=== PATIENT | male | born 1955 | race Caucasian/White ===

== ENCOUNTER 2021-05-30 01:11 | Outpatient (CLI) | payer MEDICARE, MEDICAID | END 2021-05-30 01:12 | disposition critical access hospital (66) | LOC: EMS 01:11 | DX: E11.65 Type 2 diabetes mellitus with hyperglycemia (principal); R41.82 Altered mental status, unspecified | CPT/HCPCS: A0425; A0429 ==

== ENCOUNTER 2021-05-30 01:13 | Inpatient (IN) | payer MEDICARE, MEDICAID ==
[2021-05-30] MEDS ORDERED: SODIUM CHLORIDE 0.9% 500 ML IV STA (01:19)
[2021-05-30] MEDS ORDERED: ACETAMINOPHEN 325 MG TABLET PO STA (01:24)
--- NOTE | 2021-05-30 01:24 | ED Physician Documentation ---
History of Present Illness - Stated complaint Stated Complaint: AMS, FOUND DOWN - History obtained from History obtained from: EMS - Additonal information Additional information: 66yM with pmh dm, htn, hld, p/w agitated behavior and apparent confusion. LSN 1pm. came home at midnight tonight and found him on the ground, covered in urine, apparently confused. patient stated to ems that he had laid himself down on the ground. Agitated en route requiring nonviolent soft restraints. GCS 13 for ems (eye opening spontaneously, confused verbal response, localizing pain but not obeying commands). Patient unable to state his name, location, or the year for me. He repeatedly states he has to get out of bed and does not have any pain anywhere. also repeatedly saying he has to urinate but unable to do so. further history limited by patient AMS. Per EMS he has been on amoxicillin X 3 weeks for bad dental infection. patient is supposed to have a root canal this monday with Dr. Jef Youssef. Review of Systems Unable to obtain: AMS PD PAST MEDICAL HISTORY - Present Medications Home Medications: Ambulatory Orders Medication Instructions Recorded Confirmed Aspirin [Aspirin EC] 1 tab DAILY 05/30/21 05/30/21 Atorvastatin Calcium 40 mg PO DAILY 05/30/21 05/30/21 Cetirizine [ZyrTEC] 1 tab DAILY 05/30/21 05/30/21 Chlorthalidone 1 tab DAILY 05/30/21 05/30/21 Clopidogrel [Plavix] 75 mg PO DAILY 05/30/21 05/30/21 Docusate Sodium [Dulcolax Stool 100 mg PO BID 05/30/21 05/30/21 Softener] Dulaglutide [Trulicity] 3 mg SQ ONCE 05/30/21 05/30/21 Empagliflozin [Jardiance] 25 mg PO DAILY 05/30/21 05/30/21 Furosemide [Lasix] 40 mg PO DAILY 05/30/21 05/30/21 Insulin Glargine [Lantus Solostar] 58 units 2100 05/30/21 05/30/21 Isosorbide Mononitrate ER [Imdur] 60 mg PO DAILY 05/30/21 05/30/21 Losartan [Cozaar] 100 mg PO DAILY 05/30/21 05/30/21 Metoprolol Succinate 100 mg PO DAILY 05/30/21 05/30/21 Morphine ER [Morphine Sulfate ER] 60 mg PO Q12H 05/30/21 05/30/21 Oxycodone HCl/Acetaminophen 1.5 tab PO Q6H 05/30/21 05/30/21 [Percocet 10-325 mg Tablet] Oxycodone HCl/Acetaminophen 1 each PO Q6H 05/30/21 05/30/21 [Percocet 7.5-325 mg Tablet] Tamsulosin HCl [Flomax] 2 cap DAILY 05/30/21 05/30/21 amLODIPine [Norvasc] 10 mg PO DAILY 05/30/21 05/30/21 glipiZIDE [Glucotrol] 5 mg PO 0730 05/30/21 05/30/21 metFORMIN [Glucophage] 1,000 mg PO BIDWM 05/30/21 05/30/21 traZODone [Desyrel] 50 mg PO ONCE 05/30/21 05/30/21 - Allergies Allergies/Adverse Reactions: Allergies Allergy/AdvReac Type Severity Reaction Status Date / Time No Known Drug Allergies Allergy Verified 05/30/21 01:20 PD ED PE NORMAL - Vitals Vital signs reviewed: Yes - General General: Other (Alert, confused, mildly agitated, attempting to get out of bed and pull at IV) - HEENT HEENT: Atraumatic, PERRL, EOMI, Moist mucous membranes, Pharynx benign, Other (L lower back molar with swelling and discomfort to palpation. protecting airway. no stridor. no submental hardening or ttp. able to open and close jaw) - Neck Neck: Supple, no meningeal sign - Cardiac Cardiac: Other (tachycardic rate, regular rhythm) - Respiratory Respiratory: No respiratory distress, Clear bilaterally - Abdomen Abdomen: Non tender, Non distended - Male Male : Other (normal ext male genitalia) - Derm Derm: Normal color, Warm and dry - Extremities Extremities: No deformity - Neuro Neuro: Other (AOX0) Eye Opening: Spontaneous Motor: Obeys Commands (obeys some commands. intermittently compliant. unable to assess mental status since patient refuses or is unable to answer mental status questions. appears to recognize ) Verbal: Confused GCS Score: 14 - Psych Psych: Other (AMS) Results - Vitals Vitals: Vital Signs - 24 hr 05/30/21 05/30/21 05/30/21 01:20 01:53 02:23 Temperature 38.1 C H Heart Rate 124 H 119 H 118 H Respiratory 25 H 26 H 94 H Rate Blood Pressure 103/81 H 131/71 H 131/71 H O2 Saturation 99 94 2 L 05/30/21 05/30/21 05/30/21 02:30 03:00 04:26 Temperature Heart Rate 117 H 123 H 99 Respiratory 22 18 20 Rate Blood Pressure 136/64 H 129/75 106/54 L O2 Saturation 93 92 93 05/30/21 04:30 Temperature Heart Rate 98 Respiratory 21 Rate Blood Pressure 110/49 L O2 Saturation 96 Oxygen O2 Source Nasal cannula Oxygen Flow Rate 2 - EKG (time done) 0122 Rate: Rate (enter#) Rhythm: Sinus tachycardia [place]: RAD QRS: Normal (97) Ischemia: Other (no significant JESUS or STD) Computer interpretation: Disagree with computer (computer interpretation is a flutter (due to artifact. patient moving/agitated during ekg). precordials show clear NSR) - Labs Labs: Laboratory Tests 05/30/21 05/30/21 05/30/21 01:22 01:27 01:27 WBC 30.2 H RBC 4.53 L Hgb 13.6 L Hct 41.9 L MCV 92.5 MCH 30.0 MCHC 32.5 RDW 13.8 Plt Count 394 MPV 9.6 Neut # (Auto) Not Reportable Lymph # (Auto) Not Reportable [place] # (Auto) Not Reportable Eos # (Auto) Not Reportable Baso # (Auto) Not Reportable Absolute Nucleated RBC Not Reportable Total Counted 100 Band Neuts % (Manual) 0 Abnorm Lymph % (Manual) 0 Nucleated RBC % Not Reportable Neutrophils # (Manual) 27.2 H Lymphocytes # (Manual) 1.2 L Monocytes # (Manual) 1.8 H Eosinophils # (Manual) 0.0 Basophils # (Manual) 0.0 Differential Comment MANUAL DIFFERENTIAL WBC Morphology NORMAL APPEARANCE Platelet Estimate NORMAL (130-450,000) Platelet Morphology NORMAL APPEARANCE RBC Morph Micro Appear NORMAL APPEARANCE VBG pH VBG pCO2 VBG pO2 VBG HCO3 VBG Total CO2 VBG O2 Saturation VBG Base Excess Sodium 132 L Potassium 4.5 Chloride 88 L Carbon Dioxide 29 Anion Gap 15.0 H BUN 46 H Creatinine 1.4 H Estimated GFR (MDRD) 51 L Glucose 447 H POC Whole Bld Glucose 455 H Lactic Acid Calcium 8.9 Total Bilirubin 0.5 AST 32 ALT 39 Alkaline Phosphatase 82 Total Protein 8.2 Albumin 3.1 L Globulin 5.1 H Albumin/Globulin Ratio 0.6 L Lipase 30 Urine Color Urine Clarity Urine pH Ur Specific [place] Urine Protein Urine Glucose (UA) Urine Ketones Urine Occult Blood Urine Nitrite Urine Bilirubin Urine Urobilinogen Ur Leukocyte Esterase Ur Microscopic Review Urine Culture Comments Nasal Adenovirus (PCR) Nasal B. parapertussis DNA (PCR) Nasal Coronavir 229E PCR Nasal Coronavir HKU1 PCR Nasal Coronavir NL63 PCR Nasal Coronavir OC43 PCR Nasal Enterovir/Rhinovir PCR Nasal Influenza B PCR Nasal Influenza A PCR Nasal Parainfluen 1 PCR Nasal Parainfluen 2 PCR Nasal Parainfluen 3 PCR Nasal Parainfluen 4 PCR Nasal RSV (PCR) Nasal B.pertussis DNA PCR Nasal C.pneumoniae (PCR) Pablo Human Metapneumo PCR Nasal M.pneumoniae (PCR) Nasal SARS-CoV-2 (PCR) Serum Ketones NEGATIVE 05/30/21 05/30/21 05/30/21 01:27 01:49 01:54 WBC RBC Hgb Hct MCV MCH MCHC RDW Plt Count MPV Neut # (Auto) Lymph # (Auto) [place] # (Auto) Eos # (Auto) Baso # (Auto) Absolute Nucleated RBC Total Counted Band Neuts % (Manual) Abnorm Lymph % (Manual) Nucleated RBC % Neutrophils # (Manual) Lymphocytes # (Manual) Monocytes # (Manual) Eosinophils # (Manual) Basophils # (Manual) Differential Comment WBC Morphology Platelet Estimate Platelet Morphology RBC Morph Micro Appear VBG pH 7.308 L VBG pCO2 66.0 H VBG pO2 26.3 VBG HCO3 32.3 H VBG Total CO2 34.4 H VBG O2 Saturation 48.0 L VBG Base Excess 4.0 H Sodium Potassium Chloride Carbon Dioxide Anion Gap BUN Creatinine Estimated GFR (MDRD) Glucose POC Whole Bld Glucose Lactic Acid 5.0 H* Calcium Total Bilirubin AST ALT Alkaline Phosphatase Total Protein Albumin Globulin Albumin/Globulin Ratio Lipase Urine Color YELLOW Urine Clarity CLEAR Urine pH 5.5 Ur Specific [place] <=1.005 Urine Protein NEGATIVE Urine Glucose (UA) >=1000 H Urine Ketones NEGATIVE Urine Occult Blood NEGATIVE Urine Nitrite NEGATIVE Urine Bilirubin NEGATIVE Urine Urobilinogen 0.2 (NORMAL) Ur Leukocyte Esterase NEGATIVE Ur Microscopic Review NOT INDICATED Urine Culture Comments NOT INDICATED Nasal Adenovirus (PCR) Nasal B. parapertussis DNA (PCR) Nasal Coronavir 229E PCR Nasal Coronavir HKU1 PCR Nasal Coronavir NL63 PCR Nasal Coronavir OC43 PCR Nasal Enterovir/Rhinovir PCR Nasal Influenza B PCR Nasal Influenza A PCR Nasal Parainfluen 1 PCR Nasal Parainfluen 2 PCR Nasal Parainfluen 3 PCR Nasal Parainfluen 4 PCR Nasal RSV (PCR) Nasal B.pertussis DNA PCR Nasal C.pneumoniae (PCR) Pablo Human Metapneumo PCR Nasal M.pneumoniae (PCR) Nasal SARS-CoV-2 (PCR) Serum Ketones 05/30/21 05/30/21 05/30/21 01:56 03:06 03:56 WBC RBC Hgb Hct MCV MCH MCHC RDW Plt Count MPV Neut # (Auto) Lymph # (Auto) [place] # (Auto) Eos # (Auto) Baso # (Auto) Absolute Nucleated RBC Total Counted Band Neuts % (Manual) Abnorm Lymph % (Manual) Nucleated RBC % Neutrophils # (Manual) Lymphocytes # (Manual) Monocytes # (Manual) Eosinophils # (Manual) Basophils # (Manual) Differential Comment WBC Morphology Platelet Estimate Platelet Morphology RBC Morph Micro Appear VBG pH VBG pCO2 VBG pO2 VBG HCO3 VBG Total CO2 VBG O2 Saturation VBG Base Excess Sodium Potassium Chloride Carbon Dioxide Anion Gap BUN Creatinine Estimated GFR (MDRD) Glucose POC Whole Bld Glucose 385 H Lactic Acid 3.5 H* Calcium Total Bilirubin AST ALT Alkaline Phosphatase Total Protein Albumin Globulin Albumin/Globulin Ratio Lipase Urine Color Urine Clarity Urine pH Ur Specific [place] Urine Protein Urine Glucose (UA) Urine Ketones Urine Occult Blood Urine Nitrite Urine Bilirubin Urine Urobilinogen Ur Leukocyte Esterase Ur Microscopic Review Urine Culture Comments Nasal Adenovirus (PCR) NOT DETECTED Nasal B. parapertussis DNA (PCR) NOT DETECTED Nasal Coronavir 229E PCR NOT DETECTED Nasal Coronavir HKU1 PCR NOT DETECTED Nasal Coronavir NL63 PCR NOT DETECTED Nasal Coronavir OC43 PCR NOT DETECTED Nasal Enterovir/Rhinovir PCR NOT DETECTED Nasal Influenza B PCR NOT DETECTED Nasal Influenza A PCR NOT DETECTED Nasal Parainfluen 1 PCR NOT DETECTED Nasal Parainfluen 2 PCR NOT DETECTED Nasal Parainfluen 3 PCR NOT DETECTED Nasal Parainfluen 4 PCR NOT DETECTED Nasal RSV (PCR) NOT DETECTED Nasal B.pertussis DNA PCR NOT DETECTED Nasal C.pneumoniae (PCR) NOT DETECTED Pablo Human Metapneumo PCR NOT DETECTED Nasal M.pneumoniae (PCR) NOT DETECTED Nasal SARS-CoV-2 (PCR) NOT DETECTED Serum Ketones PD MEDICAL DECISION MAKING - ED course ED course: 66yM p/w fever, confusion, elevated blood glucose, urinary frequency and incontinence. also with L lower dental infection, currently in treatment with augmentin. collateral info from - patient has not been coughing, soa, complaining of n/v, abd pain or diarrhea. he has never had kidney stones or uti to her knowledge. he appeared normal when she went to work around 1 pm and is now confused without clear explanation as to why. Will undertake septic workup to evaluate further. u/a negative. CXR without clear pneumonia. abdomen soft, ntnd. mildly hypoxic, 94% on 2L NC. no prior copd history, though he has untreated IESHA. patient is not vaccinated against covid 19 but has no known sick contacts. works front loader residential driver at [employer] but is unaware of any exposures. will plan to treat for possible odontogenic infection vs covid-19, obtain CT head/max facial and admit. 4:30am - lactic acid downtrending. AMS resolved. patient now AOX3. tachycardia and tachypnea also resolving. call placed to Dr. Poncho Youssef regarding facial swelling. message left without patient identifiers, requesting callback for consult. Patient is supposed to get root canal with Dr. Poncho Youssef' father Dr. Jef Youssef on monday. patient is without trismus. speaking in normal voice. no submental swelling or pain. does have mild swelling along L jawline as well as L lower periodontal swelling that appears to be his source of infection. CT head and maxillofacial negative for abscess. d/w Dr. Zarate for admission for IV antibiotics for sepsis in the setting of chronic dental infection. Departure - Departure Disposition: 66 [facility] DC/Xfer Clinical Impression: Sepsis, Leukocytosis, Chronic dental infection Condition: Stable
[2021-05-30] MEDS ORDERED: CLINDAMYCIN 900 MG/50 ML 50 ML IV ONE (01:30)
[2021-05-30 01:37] LABS: BASOPHILS % (AUTO) 0.5 %; EOSINOPHILS % (AUTO) 0.1 %; HCT - HEMATOCRIT 41.9 % (42.0-52.0); HGB - HEMOGLOBIN 13.6 g/dL (14.0-18.0); LYMPHOCYTES % (AUTO) 4.3 %; MEAN CORPUSCULAR HGB CONC 32.5 g/dL (32.0-36.0); MEAN CORPUSCULAR VOLUME 92.5 fL (80.0-94.0); MEAN PLATELET VOLUME 9.6 fL (7.4-11.4); MONOCYTES % (AUTO) 6.1 %; PLT - PLATELET COUNT 394 10^3/uL (130-450); RED BLOOD COUNT 4.53 10^6/uL (4.70-6.10); RED CELL DISTRIBUTION WIDTH 13.8 % (12.0-15.0); WHITE BLOOD COUNT 30.2 x10^3/uL (4.8-10.8)
[2021-05-30 01:39] LABS: ABNORMAL LYMPHS % (MANUAL) 0 %; BAND NEUTROPHILS % (MANUAL) 0 %
[2021-05-30 01:41] LABS: KETONES, SERUM (ACETEST) NEGATIVE (NEGATIVE)
[2021-05-30 01:49] LABS: ALBUMIN 3.1 g/dL (3.2-5.5); ALBUMIN/GLOBULIN RATIO 0.6 (1.0-2.2); ALKALINE PHOSPHATASE 82 IU/L (42-121); ALT ALANINE AMINOTRANSFERASE 39 IU/L (10-60); AST ASPARTATE AMINOTRANSFERASE 32 IU/L (10-42); BILIRUBIN,TOTAL 0.5 mg/dL (0.2-1.0); BUN - BLOOD UREA NITROGEN 46 mg/dL (6-20); CALCIUM 8.9 mg/dL (8.5-10.3); CARBON DIOXIDE - CO2 29 mmol/L (21-32); CHLORIDE 88 mmol/L (101-111); CREATININE 1.4 mg/dL (0.6-1.2); GFR - MDRD 51 (>89); GLUCOSE 447 mg/dL (70-100); LIPASE 30 U/L (22-51); POTASSIUM 4.5 mmol/L (3.5-5.0); SODIUM 132 mmol/L (135-145); TOTAL PROTEIN 8.2 g/dL (6.7-8.2)
[2021-05-30] MEDS ORDERED: SODIUM CHLORIDE 0.9% 1,500 ML IV STA (01:52)
[2021-05-30 01:57] LABS: BILIRUBIN,URINE NEGATIVE (NEGATIVE); GLUCOSE, URINE (UA) >=1000 mg/dL (NEGATIVE); KETONES,URINE (UA) NEGATIVE (NEGATIVE); LEUKOCYTE ESTERASE, URINE NEGATIVE (NEGATIVE); NITRITE,URINE NEGATIVE (NEGATIVE); OCCULT BLOOD,URINE NEGATIVE (NEGATIVE); PH,URINE 5.5 PH (5.0-7.5); PROTEIN,URINE NEGATIVE (NEGATIVE); UROBILINOGEN,URINE 0.2 (NORMAL) E.U./dL (NORMAL)
[2021-05-30 01:58] LABS: DIFFERENTIAL COMMENT MANUAL DIFFERENTIAL; LYMPHOCYTES # (MANUAL) 1.2 10^3/uL (1.5-3.5); LYMPHOCYTES % (MANUAL) 4 %; MONOCYTES # (MANUAL) 1.8 10^3/uL (0.0-1.0); NEUTROPHILS # (MANUAL) 27.2 10^3/uL (1.5-6.6); PLATELET ESTIMATE, MANUAL NORMAL (130-450,000) (NORMAL); PLATELET MORPHOLOGY NORMAL APPEARANCE (NORMAL); RBC MORPHOLOGY (MULTIPLE) NORMAL APPEARANCE (NORMAL); WBC MORPHOLOGY (MULTIPLE) NORMAL APPEARANCE (NORMAL)
[2021-05-30 01:59] LABS: CLARITY,URINE CLEAR (CLEAR)
[2021-05-30 02:01] LABS: VBG HCO3 32.3 mmol/L (23-28); VBG PH 7.308 (7.31-7.41); VBG PO2 26.3 mmHg (25-47); VBG TOTAL CO2 34.4 mmol/L (24-29)
[2021-05-30] MEDS ORDERED: PIPERACILLIN/TAZOBACTAM 3.375 GM in SODIUM CHLORIDE 0.9% MINIBAG 100 ML IV STA (02:09)
--- NOTE | 2021-05-30 02:12 | XRAY Report ---
PROCEDURE: Chest 1 View X-Ray INDICATIONS: sepsis screening TECHNIQUE: One view of the chest was acquired. COMPARISON: None. FINDINGS: Surgical changes and devices: None. Lungs and pleura: Bilateral infiltrates. No pleural effusions or pneumothorax. Mediastinum: Mediastinal contours appear normal. Heart size is normal. Bones and chest wall: No suspicious bony lesions. Overlying soft tissues appear unremarkable. IMPRESSION: Lateral pulmonary infiltrates compatible with pneumonia. Reviewed by: Isauro Colorado MD on 05/30/2021 2:11 AM PST Approved by: Isauro Colorado MD on 05/30/2021 2:11 AM [facility] Station ID: [id number]
[2021-05-30] MEDS ORDERED: IOPAMIDOL-300 100 ML VIAL ONE (02:40)
[2021-05-30 02:55] LABS: B. PARAPERTUSSIS- RESP PCR PAN NOT DETECTED; B. PERTUSSIS- RESP PCR PANEL NOT DETECTED; C. PNEUMONIAE- RESP PCR PANEL NOT DETECTED; CORONAVIRUS 229E-RESP PCR NOT DETECTED; CORONAVIRUS HKU1-RESP PCR NOT DETECTED; CORONAVIRUS NL63-RESP PCR NOT DETECTED; CORONAVIRUS OC43-RESP PCR NOT DETECTED; HUMAN METAPNEUMOVIRUS NOT DETECTED; INFLUENZA A- RESP PCR PANEL NOT DETECTED; INFLUENZA B - RESP PCR PANEL NOT DETECTED; M. PNEUMONIAE- RESP PCR PANEL NOT DETECTED; PARAINFLUENZA VIRUS 1 NOT DETECTED; PARAINFLUENZA VIRUS 2 NOT DETECTED; PARAINFLUENZA VIRUS 3 NOT DETECTED; PARAINFLUENZA VIRUS 4 NOT DETECTED; RHINOVIRUS/ENTEROVIRUS NOT DETECTED; RSV- RESP PCR PANEL NOT DETECTED; SARS-CoV-2 -RESP PCR PANEL NOT DETECTED
[2021-05-30] MEDS ORDERED: MORPHINE 2 MG/ML CARPUJECT IVP STA (02:56)
[2021-05-30] MEDS ORDERED: INSULIN REGULAR HUMAN 100 UNIT/1 ML 10 ML MDV IVP STA (03:01)
[2021-05-30] MEDS ORDERED: IOPAMIDOL-300 100 ML VIAL IVP ONE (03:43)
[2021-05-30] MEDS ORDERED: ACETAMINOPHEN 325 MG TABLET PO PRN (05:14)
[2021-05-30] MEDS ORDERED: ONDANSETRON ODT 4 MG TABLET TL PRN (05:14)
[2021-05-30] MEDS ORDERED: ONDANSETRON 4 MG/2 ML VIAL IVP PRN (05:14)
[2021-05-30] MEDS ORDERED: SODIUM CHLORIDE FLUSH 0.9% 10 ML SYRINGE IVP PRN (05:14)
[2021-05-30] MEDS: LACTATED RINGERS 1,000 ML IV SCH ×2 (06:08→16:37)
[2021-05-30 06:17] LABS: BASOPHILS % (AUTO) 0.4 %; EOSINOPHILS % (AUTO) 0.2 %; HGB - HEMOGLOBIN 12.3 g/dL (14.0-18.0); LYMPHOCYTES % (AUTO) 3.3 %; MEAN CORPUSCULAR HEMOGLOBIN 30.6 pg (27.0-31.0); MEAN CORPUSCULAR HGB CONC 33.2 g/dL (32.0-36.0); MEAN PLATELET VOLUME 9.7 fL (7.4-11.4); MONOCYTES % (AUTO) 5.5 %; NEUTROPHILS % (AUTO) 87.6 %; PLT - PLATELET COUNT 361 10^3/uL (130-450); RED BLOOD COUNT 4.02 10^6/uL (4.70-6.10); RED CELL DISTRIBUTION WIDTH 13.9 % (12.0-15.0)
[2021-05-30] MEDS ORDERED: LACTATED RINGERS 1,000 ML IV ONE (06:17)
--- NOTE | 2021-05-30 06:18 | HISTORY & PHYSICAL EXAMINATION ---
Chief Complaint - Chief Complaint Chief Complaint: My found me passed out. History of Present Illness - Admitted From Admitted From:: Home - History Obtained From Records Reviewed: Yes History obtained from: Patient, ER Physician, EMR - History of Present Illness HPI Comment/Other: This is a 66-year-old male with a past medical history significant for insulin- dependent diabetes mellitus, IESHA on CPAP, hypertension, coronary artery disease who presents today after being found down by his . His works at [employer] and she was working this evening and when she came home at midnight, she found him passed out on the bathroom and EMS was called immediately. The patient was initially quite altered but his mentation has improved since his time in the emergency department. He tells me he had been feeling fine except for fatigue over the past 2 weeks. He has felt tired and has not been eating very much over this period of time. He is also been sleeping in his recliner due to leg swelling and pain when he lies flat. He denies any chest pain, dyspnea, cough, fevers, chills. He reports no abdominal pain, diarrhea, nausea, vomiting, dysuria, urgency. He reports feeling completely fine except for the fatigue. He has been battling a left molar tooth infection over the past couple weeks. He just completed a course of Augmentin 2 days ago and is scheduled for a root canal this week with Dr. Jef Youssef. Here in the emergency department, he was noted to be febrile and tachycardic. He was initially normotensive. Labs revealed a white count of 30,000 and a lactic acid of 5.0. His creatinine was also elevated at 1.4. CT of the head and oral maxillofacial were unremarkable. His urinalysis was unremarkable. Ch est x-ray suggested bilateral pneumonia. Respiratory PCR panel was negative. Given the above findings, medicine was consulted for admission. I did discuss goals of care with the patient and he would like to be a full code. History - Past Medical History Cardiovascular: reports: Hypertension, Coronary artery disease Endocrine/Autoimmune: reports: Type 2 diabetes : reports: Benign prostate hypertrophy HEENT: reports: Chronic hearing loss Musculoskeletal: reports: Osteoarthritis - Past Surgical History Ortho: reports: Hip replacement (Right hip replacement in 209.) Cardiovascular: reports: Cardiac catheterization, Angioplasty - Family & Social History Family History: Mother: , Father: Family History Comment/Other: He reports his mother at 92 from natural causes. His father from coronary artery disease. Living arrangement: At home Living Situation: With spouse/s.o. Social History Notes: He lives at home with his . 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 He does not smoke and does not drink alcohol. Meds/Allgy - Home Medications Home Medications: Ambulatory Orders Medication Instructions Recorded Confirmed Aspirin [Aspirin EC] 1 tab DAILY 05/30/21 05/30/21 Atorvastatin Calcium 40 mg PO DAILY 05/30/21 05/30/21 Cetirizine [ZyrTEC] 1 tab DAILY 05/30/21 05/30/21 Chlorthalidone 1 tab DAILY 05/30/21 05/30/21 Clopidogrel [Plavix] 75 mg PO DAILY 05/30/21 05/30/21 Docusate Sodium [Dulcolax Stool 100 mg PO BID 05/30/21 05/30/21 Softener] Dulaglutide [Trulicity] 3 mg SQ ONCE 05/30/21 05/30/21 Empagliflozin [Jardiance] 25 mg PO DAILY 05/30/21 05/30/21 Furosemide [Lasix] 40 mg PO DAILY 05/30/21 05/30/21 Insulin Glargine [Lantus Solostar] 58 units 2100 05/30/21 05/30/21 Isosorbide Mononitrate ER [Imdur] 60 mg PO DAILY 05/30/21 05/30/21 Losartan [Cozaar] 100 mg PO DAILY 05/30/21 05/30/21 Metoprolol Succinate 100 mg PO DAILY 05/30/21 05/30/21 Morphine ER [Morphine Sulfate ER] 60 mg PO Q12H 05/30/21 05/30/21 Oxycodone HCl/Acetaminophen 1.5 tab PO Q6H 05/30/21 05/30/21 [Percocet 10-325 mg Tablet] Oxycodone HCl/Acetaminophen 1 each PO Q6H 05/30/21 05/30/21 [Percocet 7.5-325 mg Tablet] Tamsulosin HCl [Flomax] 2 cap DAILY 05/30/21 05/30/21 amLODIPine [Norvasc] 10 mg PO DAILY 05/30/21 05/30/21 glipiZIDE [Glucotrol] 5 mg PO 0730 05/30/21 05/30/21 metFORMIN [Glucophage] 1,000 mg PO BIDWM 05/30/21 05/30/21 traZODone [Desyrel] 50 mg PO ONCE 05/30/21 05/30/21 - Allergies Allergies/Adverse Reactions: Allergies Allergy/AdvReac Type Severity Reaction Status Date / Time No Known Drug Allergies Allergy Verified 05/30/21 01:20 Review of Systems - Constitutional Constitutional: reports: Fatigue, Poor appetite. denies: Fever, Chills - Ears, Nose & Throat Ears, Nose & Throat: reports: Dental pain. denies: Nasal discharge, Nasal congestion, Sore throat - Cardiovascular Cariovascular: reports: Edema. denies: Chest pain, Lightheadedness, Exertional dyspnea, Decr. exercise tolerance - Respiratory Respiratory: denies: Cough, Orthopnea, SOB at rest, SOB with exertion - Gastrointestinal Gastrointestinal: denies: Abdominal pain, Diarrhea, Nausea, Vomiting - Genitourinary Genitourinary: denies: Dysuria, Frequency, Urgency, Hematuria - Musculoskeletal Musculoskeletal: reports: Back pain (Chronic.) - Integumentary Integumentary: denies: Rash - Neurological Neurological: reports: General weakness. denies: Focal weakness, Dizziness - Hematologic/Lymphatic Hematologic/Lymphatic: denies: Bleeding tendencies - All Other Systems All Other Systems: reports: Reviewed and negative Prior Level of Functionality: He is normally independent with his ADLs. He meets with a walker or cane at baseline. Exam - Vital Signs Reviewed Vital Signs: Yes Vital Signs: Vital Signs x48h Temp Pulse Resp BP Pulse Ox 05/30/21 05:00 109 H 19 100/85 H 96 05/30/21 04:30 98 21 110/49 L 96 05/30/21 04:26 99 20 106/54 L 93 05/30/21 03:00 123 H 18 129/75 92 05/30/21 02:30 117 H 22 136/64 H 93 05/30/21 02:23 118 H 94 H 131/71 H 2 L 05/30/21 01:53 119 H 26 H 131/71 H 94 05/30/21 01:20 38.1 C H 124 H 25 H 103/81 H 99 - Physical Exam General Appearance: positive: No acute distress, Alert Eyes Bilateral: positive: Normal inspection, Conjunctivae nml ENT: positive: ENT inspection nml, Other (Left lower molar cavity without erythema. Mild tenderness.). negative: Pharyngeal erythema Neck: positive: Nml inspection Respiratory: positive: No respiratory distress, Rhonchi. negative: Wheezes, Rales Cardiovascular: positive: Regular rate & rhythm, No murmur. negative: Tachycardia Abdomen: positive: Non-tender, No distention. negative: Tenderness, Guarding, Rebound Back: positive: Nml inspection, Other (Mild lumbar spine tenderness. No paraspinal tenderness.) Skin: positive: Warm, Dry Extremities: positive: Pedal edema (+2 pitting edema bilateral lower extremities) Neurologic/Psychiatric: positive: Motor nml. negative: Disoriented to person, Disoriented to place, Disoriented to time Sepsis Event Note (H) - Evaluation Current Stage of Sepsis: Severe sepsis Possible source of Sepsis: positive: Pulmonary, Unknown - Sepsis Criteria Sepsis Criteria: Recorded Temperature greater than 38.3C or Less than 36C, Recorded Heart Rate greater than 90 bpm, WBC count greater than 12,000 or less than 4000, MEDICAL CLERICAL ASSISTANT: altered consciousness (unrelated to primary neuro pathology), Metabolic: lactate > 2 mmol/L Conclusion/Plan - Problem List (1) Severe sepsis Conclusion/Plan: This is suspected to be secondary to the pneumonia or potentially a dental infection. He presents with a fever, leukocytosis, lactic acidosis. He was also encephalopathic initially which has since resolved. Urinalysis is unremarkable. His abdominal exam is also unremarkable so low suspicion for an abdominal source. We will continue him empirically on vancomycin, Zosyn, and azithromycin which will cover for pneumonia as well as any potential dental infection or an infection that has not manifested itself yet. Blood cultures h ave been ordered and are pending. Trend CBC. Trend lactic acid. We will give another liter of lactated Ringer's and start him on maintenance IV fluids. (2) Community acquired pneumonia Conclusion/Plan: His chest x-ray reveals bilateral infiltrates. He is on 2 L of oxygen but denies dyspnea or cough. Respiratory PCR panel is negative. Given the severe se psis, we will treat empirically for community-acquired pneumonia with azithromycin. We will also continue vancomycin and Zosyn for empiric treatment of any other potential bacterial infection. (3) Chronic dental infection Conclusion/Plan: He has had a left molar tooth infection now for a few weeks and has been treated with Augmentin on an outpatient basis. Although there is still tenderness, I am not sure this is the cause of the sepsis. CT revealed no acute abnormalities. Nonetheless we will cover him with Zosyn IV and will ask OMFS to see him. (4) Acute kidney injury Conclusion/Plan: His creatinine is elevated at 1.4 and it is unclear if this is acute kidney injury or chronic kidney disease as you do not have baseline labs. At this time we will hold his home Lasix chlorthalidone and losartan. We will hydrate him with lactated Ringer's. Monitor his renal function closely. (5) Insulin dependent diabetes mellitus Conclusion/Plan: He is on Lantus and multiple oral agents for his type 2 diabetes. He presents with hyperglycemia and a blood glucose of nearly 400. He has just started to see an arts manager and has had medication changes over the past few weeks. We will place him on sliding scale and his home dose of Lantus. Continue carb controlled diet. (6) Hypertension Conclusion/Plan: He is currently normotensive and given the concern for severe sepsis, we will hold all of his home antihypertensives. (7) Coronary artery disease Conclusion/Plan: Stable. We will continue aspirin, Plavix, Lipitor. (8) BPH (benign prostatic hyperplasia) Conclusion/Plan: We will hold Flomax for the time being given he is normotensive and the concern for severe sepsis. - Lab Results Lab results reviewed: Yes Fish Bones: 05/30/21 06:05 05/30/21 06:05 - Diagnostic Imaging Results Diagnostic Imaging Results: positive: Prelim report reviewed, Final report reviewed Core Measures - Anticipated LOS I expect patient to be DC'd or transferred within 96 hours.: Yes - Issues Hospital Issues and Management Plan: 66-year-old male presented to being found down and now with concerns for severe sepsis secondary to pneumonia and morning dental infection. We will treat with empiric IV antibiotics. - DVT/VTE - Prophylaxis VTE/DVT Device ordered at admit?: Yes VTE/DVT Prophylaxis med ordered at admit?: Yes
[2021-05-30 06:34] LABS: WHITE BLOOD COUNT 40.6 x10^3/uL (4.8-10.8)
[2021-05-30 06:35] LABS: ABNORMAL LYMPHS % (MANUAL) 0 %; ALBUMIN 2.8 g/dL (3.2-5.5); BAND NEUTROPHILS % (MANUAL) 0 %; BILIRUBIN,DIRECT 0.1 mg/dL (0.1-0.5); BILIRUBIN,TOTAL 0.4 mg/dL (0.2-1.0); CALCIUM 8.5 mg/dL (8.5-10.3); CREATININE 1.4 mg/dL (0.6-1.2); MAGNESIUM 1.6 mg/dL (1.7-2.8); PHOSPHORUS 3.7 mg/dL (2.5-4.6); TOTAL PROTEIN 7.2 g/dL (6.7-8.2)
[2021-05-30 06:39] LABS: LYMPHOCYTES % (MANUAL) 5 %; MONOCYTES # (MANUAL) 2.4 10^3/uL (0.0-1.0); NEUTROPHILS # (MANUAL) 36.1 10^3/uL (1.5-6.6); PLATELET ESTIMATE, MANUAL NORMAL (130-450,000) (NORMAL); PLATELET MORPHOLOGY NORMAL APPEARANCE (NORMAL); RBC MORPHOLOGY (MULTIPLE) NORMAL APPEARANCE (NORMAL); WBC MORPHOLOGY (MULTIPLE) NORMAL APPEARANCE (NORMAL)
[2021-05-30 06:40] LABS: DIFFERENTIAL COMMENT MANUAL DIFFERENTIAL
[2021-05-30] MEDS ORDERED: PIPERACILLIN/TAZOBACTAM 3.375 GM in SODIUM CHLORIDE 0.9% MINIBAG 100 ML IV SCH (07:00)
[2021-05-30] MEDS ORDERED: MAGNESIUM OXIDE 400 MG TABLET PO SCH (07:00)
[2021-05-30] MEDS: INSULIN ASPART 300 UNIT/3 ML PEN SUBQ SCH ×5 (07:52→20:50)
[2021-05-30] MEDS ORDERED: VANCOMYCIN INJ 2 GM in SODIUM CHLORIDE 0.9% 500 ML IV ONE (08:00)
[2021-05-30] MEDS ORDERED: VANCOMYCIN INJ 3 GM in SODIUM CHLORIDE 0.9% 500 ML IV ONE (08:00)
--- NOTE | 2021-05-30 08:13 | CT Report ---
PROCEDURE: HEAD WO INDICATIONS: ams TECHNIQUE: Noncontrast 4.5 mm thick angled axial sections acquired from the foramen magnum to the vertex. For r adiation dose reduction, the following was used: automated exposure control, adjustment of mA and/or kV according to patient size. COMPARISON: None. FINDINGS: Image quality: Excellent. CSF spaces: Basal cisterns are patent. No extra-axial fluid collections. Ventricles are normal in size and shape. Brain: No midline shift. No intracranial masses or hemorrhage. Simmons-white matter interface is norm al. Skull and face: Calvarium and visualized facial bones are intact, without suspicious lesions. Sinuses: Visualized sinuses and mastoids are clear. IMPRESSION: No acute intracranial finding. No significant change from preliminary report. Reviewed by: Tay Hanley MD on 05/30/2021 8:12 AM PST Approved by: Tay Hanley MD on 05/30/2021 8:12 AM PST Station ID: [id number]
--- NOTE | 2021-05-30 08:16 | CT Report ---
PROCEDURE: MAXILLOFACIAL W INDICATIONS: Left lower dental infection; sepsis CONTRAST: IV CONTRAST: Isovue 300 ml: 100 PO CONTRAST: *NO PO CONTRAST TECHNIQUE: After the administration of intravenous contrast, 3.0 mm axial sections acquired from the mid-neck to the frontal sinuses, with coronal reformatting. For radiation dose reduction, the following was use d: automated exposure control, adjustment of mA and/or kV according to patient size. COMPARISON: None. FINDINGS: Image quality: Excellent. Teeth: There is a small periapical lucency in association with the left first molar along the lateral aspect of the alveolar ridge. No other significant periapical lucency identified, with caveat that t here is streak artifact from multifocal dental amalgam which limits evaluation. Soft tissues: No edema, masses, or fluid collections. No enlarged lymph nodes. Vascular: Visualized vascular structures appear patent throughout. Bony vascular foramina and canal s appear normal. Bones: Facial bones appear intact, without fractures, erosions, or destruction. Visualized portions of the skull base and auditory canals also appear normal. Sinuses: Paranasal sinuses are aerated without fluid levels, mucosal thickening, or mucoceles. Mast oid air cells are aerated. IMPRESSION: Small periapical lucency along the lateral aspect of the left first molar. Reviewed by: Tay Hanley MD on 05/30/2021 8:15 AM PST Approved by: Tay Hanley MD on 05/30/2021 8:15 AM PST Station ID: [id number]
[2021-05-30] MEDS: PIPERACILLIN/TAZOBACTAM 3.375 GM in SODIUM CHLORIDE 0.9% MINIBAG 100 ML IV SCH ×3 (08:19→20:13)
[2021-05-30] MEDS ORDERED: ENOXAPARIN 40 MG/0.4 ML SYRINGE SUBQ SCH (09:00)
[2021-05-30] MEDS: CLOPIDOGREL 75 MG TABLET PO SCH (09:01)
[2021-05-30] MEDS: SODIUM CHLORIDE FLUSH 0.9% 10 ML SYRINGE IVP SCH ×3 (09:44→23:54)
[2021-05-30] MEDS: AZITHROMYCIN INJ 500 MG in SODIUM CHLORIDE 0.9% 250 ML IV SCH (11:06)
--- NOTE | 2021-05-30 11:50 | PHARMACY PROGRESS NOTE ---
- Best Possible Medication History Admit Date and Time: 05/30/21 0514 Processed by: Nursing Medication History completed: Yes Patient Interview: Completed Secondary Source(s): Pharmacy records, Insurance records As the person ultimately responsible for medication therapy, providers are able to order a medication from an existing home medication list in [facility] via the "Reconcile Routine" prior to Confirmation of that medication by product support representative. Such practice is discouraged except when the physician, in their clinical judgment, deems that a medical need exists for a medication without regard to previous use.
--- NOTE | 2021-05-30 11:53 | PHARMACY PROGRESS NOTE ---
- Therapy Status Vancomycin regimen day #: 1 Therapy status: Awaiting steady state Basis for treatment: Empirical Treatment indication: SEPSIS, PNEUMONIA Trough goal: 15-20 Concurrent antibiotics: ZOSYN, AZITHROMYCIN - MILADY Risk Risk level for Acute Kidney Injury: High Acute Kidney Injury risk factors: Piperacillin/Tozobactam, Wt >100kg or BMI >40, IV contrast within 72 hrs, Goal trough >15, Diabetes, Sepsis - Monitoring and Recommendation Clinical response to treatment: I&O Previous 24 hours 05/28/21 05/29/21 05/30/21 23:59 23:59 23:59 Intake Total 4640 Output Total 2750 Balance 1890 Lab Results 05/30/21 05/30/21 06:05 01:27 BUN 44 H 46 H Creatinine 1.4 H 1.4 H Estimated GFR (MDRD) 51 L 51 L Monitoring plan: Daily serum creatinine Next trough due prior to maintenance dose #: 2 Next trough due (date/time): 06/01 @ 0730 Areas for additional monitoring: IV to PO when appropriate, Therapy de- escalation based on culture results, Acute Kidney Injury Pharmacy recommendation: Continue current regime
--- NOTE | 2021-05-30 13:57 | CONSULTATION NOTE ---
Referring Provider Name of Referring Provider:: Azalea Zarate Consult Date: 05/30/21 History of Present Illness - Admitted From Admitted From:: ER - History Obtained From Records Reviewed: Yes History obtained from: H&P Exam Limitations: He had a difficult time understanding questions - History of Present Illness HPI Comment/Other: 66 yo M found down in the bathroom early this am by his . Transported by EMS to ER. Found to have severe sepsis, source unclear but likely pulmonary. Also has pain in the left mandible and is scheduled to have root canal therapy this week w/ Dr. Jef Youssef. Blood culture positive for Strep anginosus. During the exam he had a difficult time staying awake and answering questions. History - Past Medical History Cardiovascular: reports: Hypertension, Coronary artery disease Endocrine/Autoimmune: reports: Type 2 diabetes : reports: Benign prostate hypertrophy HEENT: reports: Chronic hearing loss Musculoskeletal: reports: Osteoarthritis - Past Surgical History Ortho: reports: Hip replacement (Right hip replacement in 209.) Cardiovascular: reports: Cardiac catheterization, Angioplasty - Family & Social History Family History: Mother: , Father: Family History Comment/Other: He reports his mother at 92 from natural causes. His father from coronary artery disease. Living arrangement: At home Living Situation: With spouse/s.o. Social History Notes: He lives at home with his . 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 He does not smoke and does not drink alcohol. Meds/Allgy - Home Medications Home Medications: Ambulatory Orders Medication Instructions Recorded Confirmed Aspirin [Aspirin EC] 1 tab DAILY 05/30/21 05/30/21 Atorvastatin Calcium 40 mg PO DAILY 05/30/21 05/30/21 Cetirizine [ZyrTEC] 1 tab DAILY 05/30/21 05/30/21 Chlorthalidone 1 tab DAILY 05/30/21 05/30/21 Clopidogrel [Plavix] 75 mg PO DAILY 05/30/21 05/30/21 Docusate Sodium [Dulcolax Stool 100 mg PO BID 05/30/21 05/30/21 Softener] Dulaglutide [Trulicity] 3 mg SQ Q7D 05/30/21 05/30/21 Empagliflozin [Jardiance] 25 mg PO DAILY 05/30/21 05/30/21 Furosemide [Lasix] 40 mg PO DAILY 05/30/21 05/30/21 Gabapentin [Neurontin] 300 mg PO TID 05/30/21 05/30/21 Insulin Glargine [Lantus Solostar] 58 units 2100 05/30/21 05/30/21 Isosorbide Mononitrate ER [Imdur] 60 mg PO DAILY 05/30/21 05/30/21 Losartan [Cozaar] 100 mg PO DAILY 05/30/21 05/30/21 Metoprolol Succinate 100 mg PO DAILY 05/30/21 05/30/21 Morphine ER [Morphine Sulfate ER] 60 mg PO Q12H 05/30/21 05/30/21 Oxycodone HCl/Acetaminophen 1.5 tab PO Q6H 05/30/21 05/30/21 [Percocet 10-325 mg Tablet] Tamsulosin HCl [Flomax] 2 cap DAILY 05/30/21 05/30/21 amLODIPine [Norvasc] 10 mg PO DAILY 05/30/21 05/30/21 glipiZIDE [Glucotrol] 5 mg PO 0730 05/30/21 05/30/21 metFORMIN [Glucophage] 1,000 mg PO BIDWM 05/30/21 05/30/21 traZODone [Desyrel] 50 mg PO ONCE 05/30/21 05/30/21 - Allergies Allergies/Adverse Reactions: Allergies Allergy/AdvReac Type Severity Reaction Status Date / Time No Known Drug Allergies Allergy Verified 05/30/21 01:20 Review of Systems - Other Findings Other Findings: A focused review of systems was completed and positive for: L jaw pain Dental pain Negative for: Globus Trismus Drainage in to the mouth Swelling in the mouth dysphagia dyspnea Exam - Vital Signs Reviewed Vital Signs: Yes Vital Signs: Vital Signs x48h Temp Pulse Resp BP Pulse Ox 05/30/21 11:37 36.9 C 88 20 135/51 H 94 05/30/21 07:25 36.8 C 92 20 112/37 L 96 - Physical Exam General Appearance: positive: No acute distress Eyes Bilateral: positive: PERRL, EOMI ENT: positive: Other (VIVIEN wnl. Parulis buccal to tooth #18. Tenderness of tooth #18. No submandibular swelling, but there is submandibular ttp. No cellulitis of the surrounding soft tissue.) Conclusion and Plan - Lab Results Microbiology Results 05/30/21 01:27 Blood Blood Culture (PCR) - Final Laboratory Results 05/30/21 11:06: POC Whole Bld Glucose 373 H 05/30/21 10:37: Lactic Acid 3.1 H* 05/30/21 07:24: POC Whole Bld Glucose 331 H 05/30/21 06:24: B-Natriuretic Peptide 27 05/30/21 06:05: Sodium 132 L, Potassium 4.0, Chloride 91 L, Carbon Dioxide 30, Anion Gap 11.0, BUN 44 H, Creatinine 1.4 H, Estimated GFR (MDRD) 51 L, Glucose 318 H, Calcium 8.5, Phosphorus 3.7, Magnesium 1.6 L, Total Bilirubin 0.4, Direct Bilirubin 0.1, AST 33, ALT 35, Alkaline Phosphatase 63, C-Reactive Protein 10.0 H, Total Protein 7.2, Albumin 2.8 L, Globulin 4.3 H 05/30/21 06:05: WBC 40.6 H*, RBC 4.02 L, Hgb 12.3 L, Hct 37.0 L, MCV 92.0, MCH 30.6, MCHC 33.2, RDW 13.9, Plt Count 361, MPV 9.7, Neut # (Auto) Not Reportable, Lymph # (Auto) Not Reportable, [place] # (Auto) Not Reportable, Eos # (Auto) Not Reportable, Baso # (Auto) Not Reportable, Absolute Nucleated RBC Not Reportable, Total Counted 100, Band Neuts % (Manual) 0, Abnorm Lymph % (Manual) 0, Nu cleated RBC % Not Reportable, Neutrophils # (Manual) 36.1 H, Lymphocytes # (Manual) 2.0, Monocytes # (Manual) 2.4 H, Eosinophils # (Manual) 0.0, Basophils # (Manual) 0.0, Differential Comment MANUAL DIFFERENTIAL, WBC Morphology NORMAL APPEARANCE, Platelet Estimate NORMAL (130-450,000), Platelet Morphology NORMAL APPEARANCE, RBC Morph Micro Appear NORMAL APPEARANCE 05/30/21 06:05: Lactic Acid 2.8 H 05/30/21 03:56: POC Whole Bld Glucose 385 H 05/30/21 03:06: Lactic Acid 3.5 H* 05/30/21 01:56: Nasal Adenovirus (PCR) NOT DETECTED, Nasal B. parapertussis DNA (PCR) NOT DETECTED, Nasal Coronavir 229E PCR NOT DETECTED, Nasal Coronavir HKU1 PCR NOT DETECTED, Nasal Coronavir NL63 PCR NOT DETECTED, Nasal Coronavir OC43 PCR NOT DETECTED, Nasal Enterovir/Rhinovir PCR NOT DETECTED, Nasal Influenza B PCR NOT DETECTED, Nasal Influenza A PCR NOT DETECTED, Nasal Parainfluen 1 PCR NOT DETECTED, Nasal Parainfluen 2 PCR NOT DETECTED, Nasal Parainfluen 3 PCR NOT DETECTED, Nasal Parainfluen 4 PCR NOT DETECTED, Nasal RSV (PCR) NOT DETECTED, Nasal B.pertussis DNA PCR NOT DETECTED, Nasal C.pneumoniae (PCR) NOT DETECTED, Pablo Human Metapneumo PCR NOT DETECTED, Nasal M.pneumoniae (PCR) NOT DETECTED, Nasal SARS-CoV-2 (PCR) NOT DETECTED 05/30/21 01:54: VBG pH 7.308 L, VBG pCO2 66.0 H, VBG pO2 26.3, VBG HCO3 32.3 H, VBG Total CO2 34.4 H, VBG O2 Saturation 48.0 L, VBG Base Excess 4.0 H 05/30/21 01:49: Urine Color YELLOW, Urine Clarity CLEAR, Urine pH 5.5, Ur Specific [place] <=1.005, Urine Protein NEGATIVE, Urine Glucose (UA) >=1000 H, Urine Ketones NEGATIVE, Urine Occult Blood NEGATIVE, Urine Nitrite NEGATIVE, Urine Bilirubin NEGATIVE, Urine Urobilinogen 0.2 (NORMAL), Ur Leukocyte Esterase NEGATIVE, Ur Microscopic Review NOT INDICATED, Urine Culture Comments NOT INDICATED 05/30/21 01:27: Lactic Acid 5.0 H* 05/30/21 01:27: Sodium 132 L, Potassium 4.5, Chloride 88 L, Carbon Dioxide 29, Anion Gap 15.0 H, BUN 46 H, Creatinine 1.4 H, Estimated GFR (MDRD) 51 L, Glucose 447 H, Calcium 8.9, Total Bilirubin 0.5, AST 32, ALT 39, Alkaline Phosphatase 82, Total Protein 8.2, Albumin 3.1 L, Globulin 5.1 H, Albumin/Globulin Ratio 0.6 L, Lipase 30, Serum Ketones NEGATIVE 05/30/21 01:27: WBC 30.2 H, RBC 4.53 L, Hgb 13.6 L, Hct 41.9 L, MCV 92.5, MCH 30.0, MCHC 32.5, RDW 13.8, Plt Count 394, MPV 9.6, Neut # (Auto) Not Reportable, Lymph # (Auto) Not Reportable, [place] # (Auto) Not Reportable, Eos # (Auto) Not Reportable, Baso # (Auto) Not Reportable, Absolute Nucleated RBC Not Reportable, Total Counted 100, Band Neuts % (Manual) 0, Abnorm Lymph % (Manual) 0, Nucleated RBC % Not Reportable, Neutrophils # (Manual) 27.2 H, Lymphocytes # (Manual) 1.2 L, Monocytes # (Manual) 1.8 H, Eosinophils # (Manual) 0.0, Basophils # (Manual) 0.0, Differential Comment MANUAL DIFFERENTIAL, WBC Mor phology NORMAL APPEARANCE, Platelet Estimate NORMAL (130-450,000), Platelet Morphology NORMAL APPEARANCE, RBC Morph Micro Appear NORMAL APPEARANCE 05/30/21 01:22: POC Whole Bld Glucose 455 H - Diagnostic Imaging Results Diagnostic Imaging Results: positive: Other (Reviewed CT. No visible fluid collection or cellulitis. 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 - Plan Plan: Joe needs tooth #18 removed, but not immediately. The tooth is causing pain and mild purulent drainage into his mouth. It is not likely the source of his sepsis because his infection in this area is mild and chronic. For an oral infection to cause sepsis there is usually large soft tissue cellulitis/abscess and impending airway compromise. Small chronic dental infections can seed bacteria into the bloodstream and result in endocarditis, but the species isolated was Strep anginosus, an uncommon isolate from oral infections. If this necrotic tooth did cause an endocarditis, then treating the endocarditis will be the needed treatment to resolve his sepsis. Taking out the tooth at this point is unlikely to alter his immediate clinical course. It is a difficult tooth to remove and would require sedation in the OR. This would carry its own risk, and the risks outweigh the benefits. I recommend that after his sepsis is resolved and he has stablized he follow up in my clinic for removal of the tooth. Given the possiblity that this tooth has been the source of an endocarditis leading to sepsis it is my opinion that he have the tooth removed instead of saving it with root canal therapy. Thank you for including me in the care of Mr. Diamond. Please call or text with any questions. Poncho Youssef DDS [phone]
[2021-05-30] MEDS ORDERED: LIDOCAINE JELLY 2% 6 ML JEL.PF.APP TOP ONE (19:59)
[2021-05-30] MEDS: INSULIN GLARGINE 300 UNIT/3 ML PEN SUBQ SCH (20:49)
[2021-05-30] MEDS: ATORVASTATIN 40 MG TABLET PO SCH (20:51)
[2021-05-30] MEDS: ENOXAPARIN 40 MG/0.4 ML SYRINGE SUBQ SCH (20:51)
[2021-05-31] MEDS: PIPERACILLIN/TAZOBACTAM 3.375 GM in SODIUM CHLORIDE 0.9% MINIBAG 100 ML IV SCH ×4 (01:51→18:54)
[2021-05-31] MEDS: SODIUM CHLORIDE FLUSH 0.9% 10 ML SYRINGE IVP SCH ×2 (01:53→17:38)
--- NOTE | 2021-05-31 07:12 | PROVIDER PROGRESS NOTE ---
Assessment/Plan - Problem List (1) Sepsis Assessment/Plan: Secondary to community-acquired pneumonia. Suspect left lower extremity cellulitis as well. White blood cell count improved from 40.6 yesterday to 21.1 today Blood cultures of 05/30/21 grew beta-hemolytic strep group B Patient was on vancomycin, Zosyn and clindamycin. Vancomycin and clindamycin have been discontinued. We will continue Zosyn. Anticipating continued improvement. Tylenol as needed for fever. (2) Community acquired pneumonia Assessment/Plan: White blood cell count improved from 40.6 yesterday to 21.1 today Blood cultures of 05/30/21 grew beta-hemolytic strep group B Patient was on vancomycin, Zosyn and clindamycin. Vancomycin and clindamycin have been discontinued. We will continue Zosyn. Anticipating continued improvement. Tylenol as needed for fever (3) Acute kidney injury Assessment/Plan: Improved/resolved. Creatinine is 1.0. We will continue to monitor. (4) Chronic dental infection Assessment/Plan: CT scan showed no acute abnormalities. Patient had been treated with Augmentin in the outpatient setting for weeks. Currently on Zosyn. This is not the source of acute infection. (5) Coronary artery disease Assessment/Plan: On atorvastatin 40 mg p.o. every afternoon. Plavix 75 mg p.o. daily. Aspirin 81 mg p.o. daily Will resume patient's metoprolol succinate 100 mg p.o. daily and losartan 100 mg p.o. daily. (6) Hypertension Assessment/Plan: On Imdur, amlodipine, losartan, metoprolol. Will continue. Labetalol and hydralazine ordered as needed IV for systolic blood pressure greater than 160. We will hold patient's chlorthalidone and Lasix for now. (7) Insulin dependent diabetes mellitus Assessment/Plan: On Metformin, glipizide, Jardiance and Trulicity. These have been held. Lantus 58 units every afternoon, NovoLog 10 units subcu 3 times daily with meals and moderate dose sliding scale insulin. Accu-Cheks before every meal and at bedtime. (8) BPH (benign prostatic hyperplasia) Assessment/Plan: On tamsulosin 0.8mg po daily - Current Meds Current Meds: Current Medications Generic Name Dose Route Start Last Admin Trade Name Freq PRN Reason Stop Dose Admin Acetaminophen 650 mg 05/30/21 05:14 05/31/21 01:52 Acetaminophen 325 Mg Tablet PO 650 mg Q4HR PRN Administration Pain 1 to 4 Atorvastatin Calcium 40 mg 05/30/21 21:00 05/30/21 20:51 Atorvastatin 40 Mg Tablet PO 40 mg QPM SY Administration Clopidogrel Bisulfate 75 mg 05/30/21 09:00 05/30/21 09:01 Clopidogrel 75 Mg Tablet PO 75 mg DAILY SY Administration Enoxaparin Sodium 40 mg 05/30/21 21:00 05/30/21 20:51 Enoxaparin 40 Mg/0.4 Ml Syringe SUBQ 40 mg BID SY Administration Azithromycin 500 mg/ Sodium 250 mls @ 250 mls/hr 05/30/21 11:00 05/30/21 12:28 Chloride IV 06/01/21 11:59 Infused 1100 SY Infusion Piperacillin Sod/Tazobactam 100 mls @ 200 mls/hr 05/30/21 08:00 05/31/21 02:50 Sod 3.375 gm/ Sodium Chloride IV Infused Q6H SY Infusion Insulin Aspart 1 - 9 unit 05/30/21 08:00 05/30/21 20:50 Insulin Aspart 300 Unit/3 Ml Pen SUBQ 5 unit 0800,1200,1700,2100 [facility] Administration Protocol Insulin Aspart 5 unit 05/30/21 17:00 05/30/21 17:08 Insulin Aspart 300 Unit/3 Ml Pen SUBQ 5 unit TIDWM SY Administration Protocol Insulin Glargine 58 unit 05/30/21 21:00 05/30/21 20:49 Insulin Glargine 300 Unit/3 Ml Pen SUBQ 58 unit 2100 SY Administration Sodium Chloride 10 ml 05/30/21 09:00 05/31/21 01:53 Sodium Chloride Flush 0.9% 10 Ml Syringe IVP 10 ml 0100,0900,1700 [facility] Administration - Lab Result Fish Bone Diagrams: 05/31/21 09:25 05/31/21 09:25 - Additional Planning My Orders: My Active Orders 05/31/21 07:12 PICC Line Care [RC] Q4H PICC Line Insert [RC] .ONCE Subjective - Subjective Patient Reports: Other (Seated in bedside chair at time of visit. Complained of lower back pain. Reports feeling better today than at time of admission yesterday.) Objective Vital Signs: Vital Signs - 24 hr 05/30/21 05/30/21 05/30/21 07:25 11:37 14:30 Temperature 36.8 C 36.9 C 37.9 C Heart Rate [ 92 88 Brachial] Respiratory 20 20 Rate Blood Pressure 112/37 L 135/51 H [Right Brachial artery] O2 Saturation 96 94 05/30/21 05/30/21 05/31/21 17:00 20:12 00:15 Temperature 37.5 C 37.2 C 36.6 C Heart Rate [ 93 91 89 Brachial] Respiratory 20 20 20 Rate Blood Pressure 146/58 H 148/60 H 136/54 H [Right Brachial artery] O2 Saturation 92 96 95 05/31/21 05:00 Temperature 37.0 C Heart Rate [ 83 Brachial] Respiratory 20 Rate Blood Pressure 134/64 H [Right Brachial artery] O2 Saturation 97 Oxygen O2 Source Nasal cannula Oxygen Flow Rate 2 I&O (Last 24 Hrs): Intake and Output Totals x24h 05/29/21 05/30/21 05/31/21 23:59 23:59 23:59 Intake Total 8155 1395 Output Total 5175 1500 Balance 2980 -105 General: Alert, Oriented x3, Mild distress HEENT: PERRLA, EOMI Neck: Supple, No JVD Neuro: Alert, Oriented Times 3 Cardiovascular: Regular rate, Normal S1, Normal S2 Respiratory: Chest non-tender, No respiratory distress, Breath sounds nml Abdomen: Normal bowel sounds, Soft, No tenderness Extremities: Other (Erythematous Left > right) Comments/Notes: Lower extremity erythema - Results Results: Laboratory Results WBC 40.6 x10^3/uL (4.8-10.8) H* 05/30/21 06:05 RBC 4.02 10^6/uL (4.70-6.10) L 05/30/21 06:05 Hgb 12.3 g/dL (14.0-18.0) L 05/30/21 06:05 Hct 37.0 % (42.0-52.0) L 05/30/21 06:05 MCV 92.0 fL (80.0-94.0) 05/30/21 06:05 MCH 30.6 pg (27.0-31.0) 05/30/21 06:05 MCHC 33.2 g/dL (32.0-36.0) 05/30/21 06:05 RDW 13.9 % (12.0-15.0) 05/30/21 06:05 Plt Count 361 10^3/uL (130-450) 05/30/21 06:05 MPV 9.7 fL (7.4-11.4) 05/30/21 06:05 Neut # (Auto) Not Reportable 05/30/21 06:05 Lymph # (Auto) Not Reportable 05/30/21 06:05 [place] # (Auto) Not Reportable 05/30/21 06:05 Eos # (Auto) Not Reportable 05/30/21 06:05 Baso # (Auto) Not Reportable 05/30/21 06:05 Absolute Nucleated RBC Not Reportable 05/30/21 06:05 Total Counted 100 05/30/21 06:05 Band Neuts % (Manual) 0 % (0-10) 05/30/21 06:05 Abnorm Lymph % (Manual) 0 % 05/30/21 06:05 Nucleated RBC % Not Reportable 05/30/21 06:05 Neutrophils # (Manual) 36.1 10^3/uL (1.5-6.6) H 05/30/21 06:05 Lymphocytes # (Manual) 2.0 10^3/uL (1.5-3.5) 05/30/21 06:05 Monocytes # (Manual) 2.4 10^3/uL (0.0-1.0) H 05/30/21 06:05 Eosinophils # (Manual) 0.0 10^3/uL (0-0.7) 05/30/21 06:05 Basophils # (Manual) 0.0 10^3/uL (0-0.1) 05/30/21 06:05 Differential Comment MANUAL DIFFERENTIAL 05/30/21 06:05 WBC Morphology NORMAL APPEARANCE (NORMAL) 05/30/21 06:05 Platelet Estimate NORMAL (130-450,000) (NORMAL) 05/30/21 06:05 Platelet Morphology NORMAL APPEARANCE (NORMAL) 05/30/21 06:05 RBC Morph Micro Appear NORMAL APPEARANCE (NORMAL) 05/30/21 06:05 VBG pH 7.308 (7.31-7.41) L 05/30/21 01:54 VBG pCO2 66.0 mmHg (41-51) H 05/30/21 01:54 VBG pO2 26.3 mmHg (25-47) 05/30/21 01:54 VBG HCO3 32.3 mmol/L (23-28) H 05/30/21 01:54 VBG Total CO2 34.4 mmol/L (24-29) H 05/30/21 01:54 VBG O2 Saturation 48.0 % (60-80) L 05/30/21 01:54 VBG Base Excess 4.0 mmol/L (-2 - +2) H 05/30/21 01:54 Sodium 132 mmol/L (135-145) L 05/30/21 06:05 Potassium 4.0 mmol/L (3.5-5.0) 05/30/21 06:05 Chloride 91 mmol/L (101-111) L 05/30/21 06:05 Carbon Dioxide 30 mmol/L (21-32) 05/30/21 06:05 Anion Gap 11.0 (6-13) 05/30/21 06:05 BUN 44 mg/dL (6-20) H 05/30/21 06:05 Creatinine 1.4 mg/dL (0.6-1.2) H 05/30/21 06:05 Estimated GFR (MDRD) 51 (>89) L 05/30/21 06:05 Glucose 318 mg/dL (70-100) H 05/30/21 06:05 POC Whole Bld Glucose 261 mg/dL (70 - 100) H 05/30/21 20:27 Lactic Acid 3.1 mmol/L (0.5-2.2) H* 05/30/21 10:37 Calcium 8.5 mg/dL (8.5-10.3) 05/30/21 06:05 Phosphorus 3.7 mg/dL (2.5-4.6) 05/30/21 06:05 Magnesium 1.6 mg/dL (1.7-2.8) L 05/30/21 06:05 Total Bilirubin 0.4 mg/dL (0.2-1.0) 05/30/21 06:05 Direct Bilirubin 0.1 mg/dL (0.1-0.5) 05/30/21 06:05 AST 33 IU/L (10-42) 05/30/21 06:05 ALT 35 IU/L (10-60) 05/30/21 06:05 Alkaline Phosphatase 63 IU/L (42-121) 05/30/21 06:05 C-Reactive Protein 10.0 mg/dL (0-1.0) H 05/30/21 06:05 B-Natriuretic Peptide 27 pg/mL (5-100) 05/30/21 06:24 Total Protein 7.2 g/dL (6.7-8.2) 05/30/21 06:05 Albumin 2.8 g/dL (3.2-5.5) L 05/30/21 06:05 Globulin 4.3 g/dL (2.1-4.2) H 05/30/21 06:05 Albumin/Globulin Ratio 0.6 (1.0-2.2) L 05/30/21 01:27 Lipase 30 U/L (22-51) 05/30/21 01:27 Urine Color YELLOW 05/30/21 01:49 Urine Clarity CLEAR (CLEAR) 05/30/21 01:49 Urine pH 5.5 PH (5.0-7.5) 05/30/21 01:49 Ur Specific [place] <=1.005 (1.002-1.030) 05/30/21 01:49 Urine Protein NEGATIVE mg/dL (NEGATIVE) 05/30/21 01:49 Urine Glucose (UA) >=1000 mg/dL (NEGATIVE) H 05/30/21 01:49 Urine Ketones NEGATIVE mg/dL (NEGATIVE) 05/30/21 01:49 Urine Occult Blood NEGATIVE (NEGATIVE) 05/30/21 01:49 Urine Nitrite NEGATIVE (NEGATIVE) 05/30/21 01:49 Urine Bilirubin NEGATIVE (NEGATIVE) 05/30/21 01:49 Urine Urobilinogen 0.2 (NORMAL) E.U./dL (NORMAL) 05/30/21 01:49 Ur Leukocyte Esterase NEGATIVE (NEGATIVE) 05/30/21 01:49 Ur Microscopic Review NOT INDICATED 05/30/21 01:49 Urine Culture Comments NOT INDICATED 05/30/21 01:49 Nasal Adenovirus (PCR) NOT DETECTED 05/30/21 01:56 Nasal B. parapertussis DNA (PCR) NOT DETECTED 05/30/21 01:56 Nasal Coronavir 229E PCR NOT DETECTED 05/30/21 01:56 Nasal Coronavir HKU1 PCR NOT DETECTED 05/30/21 01:56 Nasal Coronavir NL63 PCR NOT DETECTED 05/30/21 01:56 Nasal Coronavir OC43 PCR NOT DETECTED 05/30/21 01:56 Nasal Enterovir/Rhinovir PCR NOT DETECTED 05/30/21 01:56 Nasal Influenza B PCR NOT DETECTED 05/30/21 01:56 Nasal Influenza A PCR NOT DETECTED 05/30/21 01:56 Nasal Parainfluen 1 PCR NOT DETECTED 05/30/21 01:56 Nasal Parainfluen 2 PCR NOT DETECTED 05/30/21 01:56 Nasal Parainfluen 3 PCR NOT DETECTED 05/30/21 01:56 Nasal Parainfluen 4 PCR NOT DETECTED 05/30/21 01:56 Nasal RSV (PCR) NOT DETECTED 05/30/21 01:56 Nasal B.pertussis DNA PCR NOT DETECTED 05/30/21 01:56 Nasal C.pneumoniae (PCR) NOT DETECTED 05/30/21 01:56 Pablo Human Metapneumo PCR NOT DETECTED 05/30/21 01:56 Nasal M.pneumoniae (PCR) NOT DETECTED 05/30/21 01:56 Nasal SARS-CoV-2 (PCR) NOT DETECTED 05/30/21 01:56 Serum Ketones NEGATIVE (NEGATIVE) 05/30/21 01:27 Sepsis Event Note (H) - Evaluation Current Stage of Sepsis: Severe sepsis Possible source of Sepsis: positive: Pulmonary, Unknown - Sepsis Criteria Sepsis Criteria: Recorded Temperature greater than 38.3C or Less than 36C, Recorded Heart Rate greater than 90 bpm, WBC count greater than 12,000 or less than 4000, RELATIONSHIP EXECUTIVE: altered consciousness (unrelated to primary neuro pathology), Me tabolic: lactate > 2 mmol/L ABX Reporting Has patient been on IV antibiotics over the past 48 hours?: Yes
[2021-05-31] MEDS ORDERED: VANCOMYCIN INJ 2 GM in SODIUM CHLORIDE 0.9% 500 ML IV SCH (08:00)
[2021-05-31] MEDS: ENOXAPARIN 40 MG/0.4 ML SYRINGE SUBQ SCH ×2 (08:09→22:06)
[2021-05-31] MEDS: CLOPIDOGREL 75 MG TABLET PO SCH (08:09)
[2021-05-31] MEDS: INSULIN ASPART 300 UNIT/3 ML PEN SUBQ SCH ×6 (08:29→22:09)
--- NOTE | 2021-05-31 08:56 | ANESTHESIA PROCEDURE NOTE ---
Diagnosis: sepsis, unable to draw labs Procedure: IV right arm 20G 2.25 cm in cephalic luis daniel Consent for Procedure(s) Verified and Reviewed: No Height and Weight: Height 6 ft Weight (kg) 170 kg Body Mass Index 50.8 Vital Signs: Temp Pulse Resp BP Pulse Ox 37.1 C 88 20 148/62 H 92 05/31/21 07:27 05/31/21 07:27 05/31/21 07:27 05/31/21 07:27 05/31/21 07:27 Allergies No Known Drug Allergies Allergy (Verified 05/30/21 01:20) ASA classification: 3-Severe systemic disease Is this case an emergency?: No Anes. Monitoring and Equipment: All ports aspirate blood Anes. Procedure Start Time: 08:30 Anes. Procedure Stop Time: 08:40 Procedure Notes: 2 5 lido skin wheal, patient tolerated placement well with U/S.
[2021-05-31 09:36] LABS: BASOPHILS # (AUTO) 0.1 10^3/uL (0.0-0.1); BASOPHILS % (AUTO) 0.3 %; HCT - HEMATOCRIT 35.7 % (42.0-52.0); HGB - HEMOGLOBIN 11.4 g/dL (14.0-18.0); LYMPHOCYTES # (AUTO) 1.6 10^3/uL (1.5-3.5); LYMPHOCYTES % (AUTO) 7.7 %; MEAN CORPUSCULAR HEMOGLOBIN 29.7 pg (27.0-31.0); MEAN CORPUSCULAR HGB CONC 31.9 g/dL (32.0-36.0); MEAN PLATELET VOLUME 9.7 fL (7.4-11.4); MONOCYTES # (AUTO) 1.2 10^3/uL (0.0-1.0); MONOCYTES % (AUTO) 5.9 %; NEUTROPHILS % (AUTO) 85.3 %; PLT - PLATELET COUNT 291 10^3/uL (130-450); RED BLOOD COUNT 3.84 10^6/uL (4.70-6.10); RED CELL DISTRIBUTION WIDTH 14.5 % (12.0-15.0); WHITE BLOOD COUNT 21.1 x10^3/uL (4.8-10.8)
[2021-05-31 09:38] LABS: SLIDE REVIEW? Indicated
[2021-05-31] MEDS ORDERED: LIDOCAINE-MPF 2% 5 ML VIAL ONE (09:47)
[2021-05-31 10:01] LABS: ALBUMIN 2.5 g/dL (3.2-5.5); BILIRUBIN,DIRECT 0.1 mg/dL (0.1-0.5); CALCIUM 8.3 mg/dL (8.5-10.3); MAGNESIUM 1.8 mg/dL (1.7-2.8); PHOSPHORUS 1.7 mg/dL (2.5-4.6); POTASSIUM 3.6 mmol/L (3.5-5.0); TOTAL PROTEIN 7.3 g/dL (6.7-8.2)
[2021-05-31 11:15] LABS: PLATELET MORPHOLOGY NORMAL APPEARANCE (NORMAL); RBC MORPHOLOGY (MULTIPLE) NORMAL APPEARANCE (NORMAL); WBC MORPHOLOGY (MULTIPLE) NORMAL APPEARANCE (NORMAL)
[2021-05-31 11:16] LABS: PLATELET ESTIMATE, MANUAL NORMAL (130-450,000) (NORMAL)
[2021-05-31 11:17] LABS: DIFFERENTIAL COMMENT MANUAL=AUTO DIFF
[2021-05-31] MEDS: AZITHROMYCIN INJ 500 MG in SODIUM CHLORIDE 0.9% 250 ML IV SCH (11:49)
[2021-05-31] MEDS: LACTOBACILLUS RHAMNOSUS GG CAPSULE PO SCH (11:52)
[2021-05-31] MEDS ORDERED: LABETALOL 20 MG/4 ML SYRINGE IVP PRN (15:13)
[2021-05-31] MEDS ORDERED: hydrALAZINE INJ 20 MG/ML VIAL IVP PRN (15:14)
[2021-05-31] MEDS ORDERED: INSULIN ASPART 300 UNIT/3 ML PEN SUBQ SCH (17:00)
[2021-05-31] MEDS: oxyCODONE 5 MG TABLET PO SCH (18:56)
[2021-05-31] MEDS ORDERED: VANCOMYCIN INJ 1.75 GM in SODIUM CHLORIDE 0.9% 500 ML IV SCH (21:00)
[2021-05-31] MEDS ORDERED: traZODone 50 MG TABLET PO PRN (21:00)
[2021-05-31] MEDS: MORPHINE SULFATE ER 30 MG TABLET PO SCH (22:05)
[2021-05-31] MEDS: GABAPENTIN 300 MG CAPSULE PO SCH (22:06)
[2021-05-31] MEDS: ATORVASTATIN 40 MG TABLET PO SCH (22:06)
[2021-05-31] MEDS: INSULIN GLARGINE 300 UNIT/3 ML PEN SUBQ SCH (22:09)
[2021-06-01] MEDS: oxyCODONE 5 MG TABLET PO SCH ×5 (00:17→23:56)
[2021-06-01] MEDS: SODIUM CHLORIDE FLUSH 0.9% 10 ML SYRINGE IVP SCH ×4 (00:18→23:58)
[2021-06-01] MEDS: PIPERACILLIN/TAZOBACTAM 3.375 GM in SODIUM CHLORIDE 0.9% MINIBAG 100 ML IV SCH ×3 (02:17→17:54)
[2021-06-01] MEDS: GABAPENTIN 300 MG CAPSULE PO SCH ×3 (06:15→21:38)
--- NOTE | 2021-06-01 07:29 | PROVIDER PROGRESS NOTE ---
Assessment/Plan - Problem List (1) Sepsis Assessment/Plan: Secondary to community-acquired pneumonia and left lower extremity cellulitis as well. White blood cell count improved from 21.1 yesterday to 16.5 today Blood cultures of 05/30/21 grew beta-hemolytic strep group B Patient was on vancomycin, Zosyn and clindamycin. Vancomycin and clindamycin have been discontinued. We will continue Zosyn. Anticipating continued improvement. Tylenol as needed for fever. (2) Community acquired pneumonia Assessment/Plan: White blood cell count improved from 21.1 yesterday to 16.5 today Blood cultures of 05/30/21 grew beta-hemolytic strep group B Patient was on vancomycin, Zosyn and clindamycin. Vancomycin and clindamycin have been discontinued. We will continue Zosyn. Anticipating continued improvement. Tylenol as needed for fever. (3) Left leg cellulitis Assessment/Plan: White blood cell count improved from 21.1 yesterday to 16.5 today Blood cultures of 05/30/21 grew beta-hemolytic strep group B Patient was on vancomycin, Zosyn and clindamycin. Vancomycin and clindamycin have been discontinued. We will continue Zosyn. Anticipating continued improvement. Tylenol as needed for fever. (4) Acute kidney injury Assessment/Plan: Improved/resolved. Creatinine is 0.9. We will continue to monitor. (5) Chronic dental infection Assessment/Plan: CT scan showed no acute abnormalities. Patient had been treated with Augmentin in the outpatient setting for weeks. Currently on Zosyn. This is not the source of acute infection. (6) Coronary artery disease Assessment/Plan: On atorvastatin 40 mg p.o. every afternoon. Plavix 75 mg p.o. daily. Aspirin 81 mg p.o. daily Will resume patient's metoprolol succinate 100 mg p.o. daily and losartan 100 mg p.o. daily. (7) Hypertension Assessment/Plan: On Imdur, amlodipine, losartan, metoprolol. Will continue. Labetalol and hydralazine ordered as needed IV for systolic blood pressure greater than 160. We will hold patient's chlorthalidone and Lasix for now. (8) Insulin dependent diabetes mellitus Assessment/Plan: On Metformin, glipizide, Jardiance and Trulicity. These have been held. Was on Lantus 58 units every afternoon, NovoLog 10 units subcu 3 times daily wit h meals and moderate dose sliding scale insulin. This has been changed to Lantus 35 units bid, NovoLog 14 units subcu 3 times daily with meals and high dose sliding scale insulin. Accu-Cheks before every meal and at bedtime. (9) BPH (benign prostatic hyperplasia) Assessment/Plan: On tamsulosin 0.8mg po daily - Current Meds Current Meds: Current Medications Generic Name Dose Route Start Last Admin Trade Name Freq PRN Reason Stop Dose Admin Acetaminophen 650 mg 05/30/21 05:14 05/31/21 01:52 Acetaminophen 325 Mg Tablet PO 650 mg Q4HR PRN Administration Pain 1 to 4 Atorvastatin Calcium 40 mg 05/30/21 21:00 05/31/21 22:06 Atorvastatin 40 Mg Tablet PO 40 mg QPM SY Administration Clopidogrel Bisulfate 75 mg 05/30/21 09:00 05/31/21 08:09 Clopidogrel 75 Mg Tablet PO 75 mg DAILY SY Administration Enoxaparin Sodium 40 mg 05/30/21 21:00 05/31/21 22:06 Enoxaparin 40 Mg/0.4 Ml Syringe SUBQ 40 mg BID SY Administration Gabapentin 300 mg 05/31/21 22:00 06/01/21 06:15 Gabapentin 300 Mg Capsule PO 300 mg TID SY Administration Azithromycin 500 mg/ Sodium 250 mls @ 250 mls/hr 05/30/21 11:00 05/31/21 13:07 Chloride IV 06/01/21 11:59 Infused 1100 SY Infusion Piperacillin Sod/Tazobactam 100 mls @ 25 mls/hr 05/31/21 18:00 06/01/21 06:21 Sod 3.375 gm/ Sodium Chloride IV Infused Q8H SY Infusion Insulin Aspart 2 - 10 unit 05/31/21 17:00 05/31/21 22:09 Insulin Aspart 300 Unit/3 Ml Pen SUBQ 8 unit 0800,1200,1700,2100 [facility] Administration Protocol Insulin Aspart 10 unit 05/31/21 17:00 05/31/21 17:37 Insulin Aspart 300 Unit/3 Ml Pen SUBQ 10 unit TIDWM SY Administration Protocol Insulin Glargine 58 unit 05/30/21 21:00 05/31/21 22:09 Insulin Glargine 300 Unit/3 Ml Pen SUBQ 58 unit 2100 SY Administration Lactobacillus Rhamnosus 1 cap 05/31/21 11:00 05/31/21 11:52 Lactobacillus Rhamnosus Gg Capsule PO 1 cap DAILY SY Administration Morphine Sulfate 60 mg 05/31/21 21:00 05/31/21 22:05 Morphine Sulfate Er 30 Mg Tablet PO 60 mg BID SY Administration Oxycodone HCl 15 mg 05/31/21 18:00 06/01/21 06:14 Oxycodone 5 Mg Tablet PO 15 mg Q6HR SY Administration Sodium Chloride 10 ml 05/30/21 09:00 06/01/21 00:18 Sodium Chloride Flush 0.9% 10 Ml Syringe IVP 10 ml 0100,0900,1700 SY Administration - Lab Result Fish Bone Diagrams: 06/01/21 10:05 06/01/21 10:05 - Additional Planning My Orders: My Active Orders 05/31/21 11:00 Lactobacillus Rhamnosus GG [Culturelle] 1 cap PO DAILY 05/31/21 Lunch Carb-controlled Diet [DIET] 05/31/21 15:13 Labetalol Syringe [Trandate Syringe] 10 mg IVP Q4H PRN 05/31/21 15:14 hydrALAZINE INJ [Apresoline Inj] 10 mg IVP Q4H PRN 05/31/21 17:00 Insulin Aspart [NovoLOG] 10 unit SUBQ TIDWM 05/31/21 18:00 oxyCODONE [Roxicodone] 15 mg PO Q6HR 05/31/21 21:00 Morphine Sulfate ER [Ms Contin] 60 mg PO BID traZODone [Desyrel] 50 mg PO QPM PRN 05/31/21 22:00 Gabapentin [Neurontin] 300 mg PO TID 06/01/21 09:00 Aspirin EC [Ecotrin] 81 mg PO DAILY Isosorbide Mononitrate ER [Imdur] 60 mg PO DAILY Losartan [Cozaar] 100 mg PO DAILY Metoprolol Succinate [Toprol Xl] 100 mg PO DAILY Tamsulosin [Flomax] 0.8 mg PO DAILY amLODIPine [Norvasc] 10 mg PO DAILY Subjective - Subjective Patient Reports: Other (Patient continues to improve clinically daily. There is decreased redness on his left lower extremity and he is breathing comfortably. He reports decreased overall pain.) Objective Vital Signs: Vital Signs - 24 hr 05/31/21 05/31/21 05/31/21 13:00 17:00 19:45 Temperature 37.1 C 36.9 C 37.0 C Heart Rate [ 99 99 88 Brachial] Respiratory 20 20 20 Rate Blood Pressure 166/67 H 159/58 H 139/56 H [Right Brachial artery] O2 Saturation 94 97 94 05/31/21 06/01/21 23:30 06:07 Temperature 37.3 C 36.9 C Heart Rate [ 100 101 H Brachial] Respiratory 20 22 Rate Blood Pressure 102/72 155/90 H [Right Brachial artery] O2 Saturation 92 92 Oxygen O2 Source Nasal cannula Oxygen Flow Rate 2 I&O (Last 24 Hrs): Intake and Output Totals x24h 05/30/21 05/31/21 06/01/21 23:59 23:59 23:59 Intake Total 8155 4675 700 Output Total 7068 9078 1125 Balance 2980 125 -553 General: Alert, Oriented x3, Mild distress HEENT: PERRLA, EOMI Neck: Supple, No JVD Neuro: Alert, Non Focal, Oriented Times 3 Cardiovascular: Regular rate, No murmurs Respiratory: Chest non-tender, No respiratory distress, Breath sounds nml Abdomen: Normal bowel sounds, Soft, Other (Obese abdomen) Extremities: Other (left lower extremity erythema (improved)) Comments/Notes: Lower extremity erythema - Results Results: Laboratory Results WBC 21.1 x10^3/uL (4.8-10.8) H 05/31/21 09:25 RBC 3.84 10^6/uL (4.70-6.10) L 05/31/21 09:25 Hgb 11.4 g/dL (14.0-18.0) L 05/31/21 09:25 Hct 35.7 % (42.0-52.0) L 05/31/21 09:25 MCV 93.0 fL (80.0-94.0) 05/31/21 09:25 MCH 29.7 pg (27.0-31.0) 05/31/21 09:25 MCHC 31.9 g/dL (32.0-36.0) L 05/31/21 09:25 RDW 14.5 % (12.0-15.0) 05/31/21 09:25 Plt Count 291 10^3/uL (130-450) 05/31/21 09:25 MPV 9.7 fL (7.4-11.4) 05/31/21 09:25 Neut # (Auto) 18.0 10^3/uL (1.5-6.6) H 05/31/21 09:25 Lymph # (Auto) 1.6 10^3/uL (1.5-3.5) 05/31/21 09:25 [place] # (Auto) 1.2 10^3/uL (0.0-1.0) H 05/31/21 09:25 Eos # (Auto) 0.0 10^3/uL (0.0-0.7) 05/31/21 09:25 Baso # (Auto) 0.1 10^3/uL (0.0-0.1) 05/31/21 09:25 Absolute Nucleated RBC 0.00 x10^3/uL 05/31/21 09:25 Total Counted 100 05/30/21 06:05 Band Neuts % (Manual) Not Reportable 05/31/21 09:25 Abnorm Lymph % (Manual) Not Reportable 05/31/21 09:25 Nucleated RBC % 0.0 /100WBC 05/31/21 09:25 Neutrophils # (Manual) Not Reportable 05/31/21 09:25 Lymphocytes # (Manual) Not Reportable 05/31/21 09:25 Monocytes # (Manual) Not Reportable 05/31/21 09:25 Eosinophils # (Manual) Not Reportable 05/31/21 09:25 Basophils # (Manual) Not Reportable 05/31/21 09:25 Differential Comment MANUAL=AUTO DIFF 05/31/21 09:25 Manual Slide Review Indicated 05/31/21 09:25 WBC Morphology NORMAL APPEARANCE (NORMAL) 05/31/21 09:25 Platelet Estimate NORMAL (130-450,000) (NORMAL) 05/31/21 09:25 Platelet Morphology NORMAL APPEARANCE (NORMAL) 05/31/21 09:25 RBC Morph Micro Appear NORMAL APPEARANCE (NORMAL) 05/31/21 09:25 VBG pH 7.308 (7.31-7.41) L 05/30/21 01:54 VBG pCO2 66.0 mmHg (41-51) H 05/30/21 01:54 VBG pO2 26.3 mmHg (25-47) 05/30/21 01:54 VBG HCO3 32.3 mmol/L (23-28) H 05/30/21 01:54 VBG Total CO2 34.4 mmol/L (24-29) H 05/30/21 01:54 VBG O2 Saturation 48.0 % (60-80) L 05/30/21 01:54 VBG Base Excess 4.0 mmol/L (-2 - +2) H 05/30/21 01:54 Sodium 136 mmol/L (135-145) 05/31/21 09:25 Potassium 3.6 mmol/L (3.5-5.0) 05/31/21 09:25 Chloride 94 mmol/L (101-111) L 05/31/21 09:25 Carbon Dioxide 31 mmol/L (21-32) 05/31/21 09:25 Anion Gap 11.0 (6-13) 05/31/21 09:25 BUN 24 mg/dL (6-20) H 05/31/21 09:25 Creatinine 1.0 mg/dL (0.6-1.2) 05/31/21 09:25 Estimated GFR (MDRD) 75 (>89) L 05/31/21 09:25 Glucose 411 mg/dL (70-100) H 05/31/21 09:25 POC Whole Bld Glucose 290 mg/dL (70 - 100) H 05/31/21 20:41 Lactic Acid 3.1 mmol/L (0.5-2.2) H* 05/30/21 10:37 Calcium 8.3 mg/dL (8.5-10.3) L 05/31/21 09:25 Phosphorus 1.7 mg/dL (2.5-4.6) L 05/31/21 09:25 Magnesium 1.8 mg/dL (1.7-2.8) 05/31/21 09:25 Total Bilirubin 1.0 mg/dL (0.2-1.0) 05/31/21 09:25 Direct Bilirubin 0.1 mg/dL (0.1-0.5) 05/31/21 09:25 AST 37 IU/L (10-42) 05/31/21 09:25 ALT 34 IU/L (10-60) 05/31/21 09:25 Alkaline Phosphatase 65 IU/L (42-121) 05/31/21 09:25 C-Reactive Protein 10.0 mg/dL (0-1.0) H 05/30/21 06:05 B-Natriuretic Peptide 27 pg/mL (5-100) 05/30/21 06:24 Total Protein 7.3 g/dL (6.7-8.2) 05/31/21 09:25 Albumin 2.5 g/dL (3.2-5.5) L 05/31/21 09:25 Globulin 4.8 g/dL (2.1-4.2) H 05/31/21 09:25 Albumin/Globulin Ratio 0.6 (1.0-2.2) L 05/30/21 01:27 Lipase 30 U/L (22-51) 05/30/21 01:27 Urine Color YELLOW 05/30/21 01:49 Urine Clarity CLEAR (CLEAR) 05/30/21 01:49 Urine pH 5.5 PH (5.0-7.5) 05/30/21 01:49 Ur Specific [place] <=1.005 (1.002-1.030) 05/30/21 01:49 Urine Protein NEGATIVE mg/dL (NEGATIVE) 05/30/21 01:49 Urine Glucose (UA) >=1000 mg/dL (NEGATIVE) H 05/30/21 01:49 Urine Ketones NEGATIVE mg/dL (NEGATIVE) 05/30/21 01:49 Urine Occult Blood NEGATIVE (NEGATIVE) 05/30/21 01:49 Urine Nitrite NEGATIVE (NEGATIVE) 05/30/21 01:49 Urine Bilirubin NEGATIVE (NEGATIVE) 05/30/21 01:49 Urine Urobilinogen 0.2 (NORMAL) E.U./dL (NORMAL) 05/30/21 01:49 Ur Leukocyte Esterase NEGATIVE (NEGATIVE) 05/30/21 01:49 Ur Microscopic Review NOT INDICATED 05/30/21 01:49 Urine Culture Comments NOT INDICATED 05/30/21 01:49 Nasal Adenovirus (PCR) NOT DETECTED 05/30/21 01:56 Nasal B. parapertussis DNA (PCR) NOT DETECTED 05/30/21 01:56 Nasal Coronavir 229E PCR NOT DETECTED 05/30/21 01:56 Nasal Coronavir HKU1 PCR NOT DETECTED 05/30/21 01:56 Nasal Coronavir NL63 PCR NOT DETECTED 05/30/21 01:56 Nasal Coronavir OC43 PCR NOT DETECTED 05/30/21 01:56 Nasal Enterovir/Rhinovir PCR NOT DETECTED 05/30/21 01:56 Nasal Influenza B PCR NOT DETECTED 05/30/21 01:56 Nasal Influenza A PCR NOT DETECTED 05/30/21 01:56 Nasal Parainfluen 1 PCR NOT DETECTED 05/30/21 01:56 Nasal Parainfluen 2 PCR NOT DETECTED 05/30/21 01:56 Nasal Parainfluen 3 PCR NOT DETECTED 05/30/21 01:56 Nasal Parainfluen 4 PCR NOT DETECTED 05/30/21 01:56 Nasal RSV (PCR) NOT DETECTED 05/30/21 01:56 Nasal B.pertussis DNA PCR NOT DETECTED 05/30/21 01:56 Nasal C.pneumoniae (PCR) NOT DETECTED 05/30/21 01:56 Pablo Human Metapneumo PCR NOT DETECTED 05/30/21 01:56 Nasal M.pneumoniae (PCR) NOT DETECTED 05/30/21 01:56 Nasal SARS-CoV-2 (PCR) NOT DETECTED 05/30/21 01:56 Serum Ketones NEGATIVE (NEGATIVE) 05/30/21 01:27 Sepsis Event Note (H) - Evaluation Current Stage of Sepsis: Severe sepsis Possible source of Sepsis: positive: Pulmonary, Unknown - Sepsis Criteria Sepsis Criteria: Recorded Temperature greater than 38.3C or Less than 36C, Recorded Heart Rate greater than 90 bpm, WBC count greater than 12,000 or less than 4000, DIRECTOR INTERNAL CONTROL: altered consciousness (unrelated to primary neuro pathology), Metabolic: lactate > 2 mmol/L ABX Reporting Has patient been on IV antibiotics over the past 48 hours?: Yes
[2021-06-01] MEDS: LOSARTAN 50 MG TABLET PO SCH (08:27)
[2021-06-01] MEDS: TAMSULOSIN 0.4 MG CAPSULE PO SCH (08:28)
[2021-06-01] MEDS: ASPIRIN EC 81 MG TABLET PO SCH (08:28)
[2021-06-01] MEDS: ENOXAPARIN 40 MG/0.4 ML SYRINGE SUBQ SCH ×2 (08:28→21:36)
[2021-06-01] MEDS: amLODIPine 5 MG TABLET PO SCH (08:28)
[2021-06-01] MEDS: MORPHINE SULFATE ER 30 MG TABLET PO SCH ×2 (08:28→21:37)
[2021-06-01] MEDS: CLOPIDOGREL 75 MG TABLET PO SCH (08:28)
[2021-06-01] MEDS: LACTOBACILLUS RHAMNOSUS GG CAPSULE PO SCH (08:28)
[2021-06-01] MEDS: ISOSORBIDE MONONITRATE ER 30 MG TABLET PO SCH (08:28)
[2021-06-01] MEDS: METOPROLOL SUCCINATE 50 MG TABLET PO SCH (08:28)
[2021-06-01] MEDS: INSULIN ASPART 300 UNIT/3 ML PEN SUBQ SCH ×7 (08:38→21:38)
[2021-06-01] MEDS: INSULIN GLARGINE 300 UNIT/3 ML PEN SUBQ SCH ×2 (08:38→21:38)
[2021-06-01 10:15] LABS: BASOPHILS # (AUTO) 0.1 10^3/uL (0.0-0.1); BASOPHILS % (AUTO) 0.4 %; EOSINOPHILS % (AUTO) 0.2 %; HCT - HEMATOCRIT 35.3 % (42.0-52.0); HGB - HEMOGLOBIN 11.2 g/dL (14.0-18.0); LYMPHOCYTES # (AUTO) 1.6 10^3/uL (1.5-3.5); LYMPHOCYTES % (AUTO) 9.7 %; MEAN CORPUSCULAR HEMOGLOBIN 29.6 pg (27.0-31.0); MEAN CORPUSCULAR HGB CONC 31.7 g/dL (32.0-36.0); MEAN CORPUSCULAR VOLUME 93.1 fL (80.0-94.0); MEAN PLATELET VOLUME 9.6 fL (7.4-11.4); MONOCYTES % (AUTO) 6.1 %; NEUTROPHILS # (AUTO) 13.7 10^3/uL (1.5-6.6); NEUTROPHILS % (AUTO) 82.9 %; PLT - PLATELET COUNT 281 10^3/uL (130-450); RED BLOOD COUNT 3.79 10^6/uL (4.70-6.10); RED CELL DISTRIBUTION WIDTH 14.6 % (12.0-15.0); WHITE BLOOD COUNT 16.5 x10^3/uL (4.8-10.8)
[2021-06-01 10:35] LABS: ALBUMIN 2.4 g/dL (3.2-5.5); ALKALINE PHOSPHATASE 73 IU/L (42-121); ALT ALANINE AMINOTRANSFERASE 52 IU/L (10-60); AST ASPARTATE AMINOTRANSFERASE 62 IU/L (10-42); BILIRUBIN,TOTAL 0.9 mg/dL (0.2-1.0); BUN - BLOOD UREA NITROGEN 20 mg/dL (6-20); CALCIUM 8.2 mg/dL (8.5-10.3); CARBON DIOXIDE - CO2 31 mmol/L (21-32); CHLORIDE 96 mmol/L (101-111); CREATININE 0.9 mg/dL (0.6-1.2); GFR - MDRD 85 (>89); GLUCOSE 296 mg/dL (70-100); MAGNESIUM 1.7 mg/dL (1.7-2.8); PHOSPHORUS 2.5 mg/dL (2.5-4.6); POTASSIUM 3.8 mmol/L (3.5-5.0); SODIUM 137 mmol/L (135-145); TOTAL PROTEIN 7.5 g/dL (6.7-8.2)
[2021-06-01 10:36] LABS: BILIRUBIN,DIRECT < 0.1 mg/dL (0.1-0.5)
[2021-06-01] MEDS: AZITHROMYCIN INJ 500 MG in SODIUM CHLORIDE 0.9% 250 ML IV SCH (11:51)
[2021-06-01] MEDS: ATORVASTATIN 40 MG TABLET PO SCH (21:36)
[2021-06-02] MEDS: PIPERACILLIN/TAZOBACTAM 3.375 GM in SODIUM CHLORIDE 0.9% MINIBAG 100 ML IV SCH ×3 (01:44→18:26)
[2021-06-02] MEDS: oxyCODONE 5 MG TABLET PO SCH ×4 (06:34→23:49)
[2021-06-02] MEDS: GABAPENTIN 300 MG CAPSULE PO SCH ×3 (06:34→21:15)
[2021-06-02] MEDS: INSULIN ASPART 300 UNIT/3 ML PEN SUBQ SCH ×7 (07:52→21:16)
[2021-06-02] MEDS: amLODIPine 5 MG TABLET PO SCH (07:55)
[2021-06-02] MEDS: METOPROLOL SUCCINATE 50 MG TABLET PO SCH (07:56)
[2021-06-02] MEDS: ISOSORBIDE MONONITRATE ER 30 MG TABLET PO SCH (07:56)
[2021-06-02] MEDS: LOSARTAN 50 MG TABLET PO SCH (07:56)
[2021-06-02] MEDS: MORPHINE SULFATE ER 30 MG TABLET PO SCH ×2 (07:56→21:15)
[2021-06-02] MEDS: TAMSULOSIN 0.4 MG CAPSULE PO SCH (07:56)
[2021-06-02] MEDS: LACTOBACILLUS RHAMNOSUS GG CAPSULE PO SCH (07:57)
[2021-06-02] MEDS: ENOXAPARIN 40 MG/0.4 ML SYRINGE SUBQ SCH ×2 (07:57→21:16)
[2021-06-02] MEDS: ASPIRIN EC 81 MG TABLET PO SCH (07:57)
[2021-06-02] MEDS: CLOPIDOGREL 75 MG TABLET PO SCH (07:57)
[2021-06-02] MEDS: SODIUM CHLORIDE FLUSH 0.9% 10 ML SYRINGE IVP SCH ×3 (07:57→23:49)
[2021-06-02] MEDS: INSULIN GLARGINE 300 UNIT/3 ML PEN SUBQ SCH ×2 (08:15→21:18)
--- NOTE | 2021-06-02 08:25 | PROVIDER PROGRESS NOTE ---
Assessment/Plan - Problem List (1) Sepsis Assessment/Plan: Secondary to community-acquired pneumonia and left lower extremity cellulitis as well. White blood cell count improved from 16.5 yesterday to 9.8 today Blood cultures of 05/30/21 grew beta-hemolytic strep group B Patient was on vancomycin, Zosyn and clindamycin. Vancomycin and clindamycin have been discontinued. We will continue Zosyn. Plan for discharge on 06/03/2021. We will place the patient on Augmentin 875/125 mg p.o. twice daily x10 days. (2) Community acquired pneumonia Assessment/Plan: White blood cell count improved from 16.5 yesterday to 9.8 today Blood cultures of 05/30/21 grew beta-hemolytic strep group B Patient was on vancomycin, Zosyn and clindamycin. Vancomycin and clindamycin have been discontinued. We will continue Zosyn. Plan for discharge on 06/03/2021. We will place the patient on Augmentin 875/125 mg p.o. twice daily x10 days. (3) Left leg cellulitis Assessment/Plan White blood cell count improved from 16.5 yesterday to 9.8 today Blood cultures of 05/30/21 grew beta-hemolytic strep group B Patient was on vancomycin, Zosyn and clindamycin. Vancomycin and clindamycin have been discontinued. We will continue Zosyn. Plan for discharge on 06/03/2021. We will place the patient on Augmentin 875/125 mg p.o. twice daily x10 days. (4) Acute kidney injury Assessment/Plan: Improved/resolved. Creatinine is 1.0. We will continue to monitor. (5) Chronic dental infection Assessment/Plan: CT scan showed no acute abnormalities. Patient had been treated with Augmentin in the outpatient setting for weeks. Currently on Zosyn. This is not the source of acute infection. (6) Coronary artery disease Assessment/Plan: On atorvastatin 40 mg p.o. every afternoon. Plavix 75 mg p.o. daily. Aspirin 81 mg p.o. daily Will resume patient's metoprolol succinate 100 mg p.o. daily and losartan 100 mg p.o. daily. (7) Hypertension Assessment/Plan: On Imdur, amlodipine, losartan, metoprolol. Will continue. Labetalol and hydralazine ordered as needed IV for systolic blood pressure g reater than 160. We will hold patient's chlorthalidone and Lasix for now. (8) Insulin dependent diabetes mellitus Assessment/Plan: On Metformin, glipizide, Jardiance and Trulicity. These have been held. Was on Lantus 58 units every afternoon, NovoLog 10 units subcu 3 times daily with meals and moderate dose sliding scale insulin. Lantus increased to 40 units bid, NovoLog 14 units subcu 3 times daily with meals and high dose sliding scale insulin. Accu-Cheks before every meal and at bedtime. (9) BPH (benign prostatic hyperplasia) Assessment/Plan: On tamsulosin 0.8mg po daily - Current Meds Current Meds: Current Medications Generic Name Dose Route Start Last Admin Trade Name Freq PRN Reason Stop Dose Admin Acetaminophen 650 mg 05/30/21 05:14 05/31/21 01:52 Acetaminophen 325 Mg Tablet PO 650 mg Q4HR PRN Administration Pain 1 to 4 Amlodipine Besylate 10 mg 06/01/21 09:00 06/02/21 07:55 Amlodipine 5 Mg Tablet PO 10 mg DAILY SY Administration Aspirin 81 mg 06/01/21 09:00 06/02/21 07:57 Aspirin Ec 81 Mg Tablet PO 81 mg DAILY SY Administration Atorvastatin Calcium 40 mg 05/30/21 21:00 06/01/21 21:36 Atorvastatin 40 Mg Tablet PO 40 mg QPM SY Administration Clopidogrel Bisulfate 75 mg 05/30/21 09:00 06/02/21 07:57 Clopidogrel 75 Mg Tablet PO 75 mg DAILY SY Administration Enoxaparin Sodium 40 mg 05/30/21 21:00 06/02/21 07:57 Enoxaparin 40 Mg/0.4 Ml Syringe SUBQ 40 mg BID SY Administration Gabapentin 300 mg 05/31/21 22:00 06/02/21 06:34 Gabapentin 300 Mg Capsule PO 300 mg TID SY Administration Piperacillin Sod/Tazobactam 100 mls @ 25 mls/hr 05/31/21 18:00 06/02/21 05:51 Sod 3.375 gm/ Sodium Chloride IV Infused Q8H SY Infusion Insulin Aspart 14 unit 06/01/21 08:00 06/02/21 07:52 Insulin Aspart 300 Unit/3 Ml Pen SUBQ 14 unit TIDWM SY Administration Protocol Insulin Aspart 3 - 11 unit 06/01/21 17:00 06/02/21 07:52 Insulin Aspart 300 Unit/3 Ml Pen SUBQ 5 unit 0800,1200,1700,2100 SY Administration Protocol Insulin Glargine 35 unit 06/01/21 09:00 06/02/21 08:15 Insulin Glargine 300 Unit/3 Ml Pen SUBQ 35 unit BID SY Administration Isosorbide Mononitrate 60 mg 06/01/21 09:00 06/02/21 07:56 Isosorbide Mononitrate Er 30 Mg Tablet PO 60 mg DAILY SY Administration Lactobacillus Rhamnosus 1 cap 05/31/21 11:00 06/02/21 07:57 Lactobacillus Rhamnosus Gg Capsule PO 1 cap DAILY SY Administration Losartan Potassium 100 mg 06/01/21 09:00 06/02/21 07:56 Losartan 50 Mg Tablet PO 100 mg DAILY SY Administration Metoprolol Succinate 100 mg 06/01/21 09:00 06/02/21 07:56 Metoprolol Succinate 50 Mg Tablet PO 100 mg DAILY SY Administration Morphine Sulfate 60 mg 05/31/21 21:00 06/02/21 07:56 Morphine Sulfate Er 30 Mg Tablet PO 60 mg BID SY Administration Oxycodone HCl 15 mg 05/31/21 18:00 06/02/21 06:34 Oxycodone 5 Mg Tablet PO 15 mg Q6HR SY Administration Sodium Chloride 10 ml 05/30/21 09:00 06/02/21 07:57 Sodium Chloride Flush 0.9% 10 Ml Syringe IVP 10 ml 0100,0900,1700 SY Administration Tamsulosin HCl 0.8 mg 06/01/21 09:00 06/02/21 07:56 Tamsulosin 0.4 Mg Capsule PO 0.8 mg DAILY SY Administration Trazodone HCl 50 mg 05/31/21 21:00 06/01/21 21:36 Trazodone 50 Mg Tablet PO 50 mg QPM PRN Administration Insomnia - Lab Result Fish Bone Diagrams: 06/02/21 14:50 06/02/21 14:50 - Additional Planning My Orders: My Active Orders 06/01/21 08:00 Insulin Aspart [NovoLOG] 14 unit SUBQ TIDWM 06/01/21 09:00 Aspirin EC [Ecotrin] 81 mg PO DAILY Insulin Glargine [Lantus Solostar] 35 unit SUBQ BID Isosorbide Mononitrate ER [Imdur] 60 mg PO DAILY Losartan [Cozaar] 100 mg PO DAILY Metoprolol Succinate [Toprol Xl] 100 mg PO DAILY Tamsulosin [Flomax] 0.8 mg PO DAILY amLODIPine [Norvasc] 10 mg PO DAILY 06/02/21 07:51 Blood Culture [CULTURE, BLOOD #1] [] Routine Blood Culture [CULTURE, BLOOD #2] [] Routine Subjective - Subjective Patient Reports: Other (Patient was seated comfortably in bed at time of exam. He continues to do better daily. Still has mild pain in his left leg. Redness significantly improved on the left leg.) Objective Vital Signs: Vital Signs - 24 hr 06/01/21 06/01/21 06/01/21 11:15 16:12 21:00 Temperature 36.9 C 36.6 C 36.8 C Heart Rate [ 77 80 78 Brachial] Respiratory 20 18 20 Rate Blood Pressure 101/48 L 118/57 L 118/56 L [Right Brachial artery] O2 Saturation 94 94 95 06/02/21 06/02/21 06/02/21 00:21 05:00 07:26 Temperature 36.5 C 36.9 C 36.8 C Heart Rate [ 76 78 78 Brachial] Respiratory 20 18 18 Rate Blood Pressure 114/59 L 116/59 L 120/67 [Right Brachial artery] O2 Saturation 93 94 96 Oxygen O2 Source Nasal cannula Oxygen Flow Rate 2 I&O (Last 24 Hrs): Intake and Output Totals x24h 05/31/21 06/01/21 06/02/21 23:59 23:59 23:59 Intake Total 4675 3970 850 Output Total 4800 3475 725 Balance -125 495 125 Comments/Notes: General: Alert, Oriented x3, Mild distress HEENT: PERRLA, EOMI Neck: Supple, No JVD Neuro: Alert, Non Focal, Oriented Times 3 Cardiovascular: Regular rate, No murmurs Respiratory: Chest non-tender, No respiratory distress, Breath sounds nml Abdomen: Normal bowel sounds, Soft, Other (Obese abdomen) Extremities: Other (left lower extremity erythema (improved)) Comments/Notes: Lower extremity erythema - Results Results: Laboratory Results WBC 16.5 x10^3/uL (4.8-10.8) H 06/01/21 10:05 RBC 3.79 10^6/uL (4.70-6.10) L 06/01/21 10:05 Hgb 11.2 g/dL (14.0-18.0) L 06/01/21 10:05 Hct 35.3 % (42.0-52.0) L 06/01/21 10:05 MCV 93.1 fL (80.0-94.0) 06/01/21 10:05 MCH 29.6 pg (27.0-31.0) 06/01/21 10:05 MCHC 31.7 g/dL (32.0-36.0) L 06/01/21 10:05 RDW 14.6 % (12.0-15.0) 06/01/21 10:05 Plt Count 281 10^3/uL (130-450) 06/01/21 10:05 MPV 9.6 fL (7.4-11.4) 06/01/21 10:05 Neut # (Auto) 13.7 10^3/uL (1.5-6.6) H 06/01/21 10:05 Lymph # (Auto) 1.6 10^3/uL (1.5-3.5) 06/01/21 10:05 Ponce # (Auto) 1.0 10^3/uL (0.0-1.0) 06/01/21 10:05 Eos # (Auto) 0.0 10^3/uL (0.0-0.7) 06/01/21 10:05 Baso # (Auto) 0.1 10^3/uL (0.0-0.1) 06/01/21 10:05 Absolute Nucleated RBC 0.00 x10^3/uL 06/01/21 10:05 Total Counted 100 05/30/21 06:05 Band Neuts % (Manual) Not Reportable 05/31/21 09:25 Abnorm Lymph % (Manual) Not Reportable 05/31/21 09:25 Nucleated RBC % 0.0 /100WBC 06/01/21 10:05 Neutrophils # (Manual) Not Reportable 05/31/21 09:25 Lymphocytes # (Manual) Not Reportable 05/31/21 09:25 Monocytes # (Manual) Not Reportable 05/31/21 09:25 Eosinophils # (Manual) Not Reportable 05/31/21 09:25 Basophils # (Manual) Not Reportable 05/31/21 09:25 Differential Comment MANUAL=AUTO DIFF 05/31/21 09:25 Manual Slide Review Indicated 05/31/21 09:25 WBC Morphology NORMAL APPEARANCE (NORMAL) 05/31/21 09:25 Platelet Estimate NORMAL (130-450,000) (NORMAL) 05/31/21 09:25 Platelet Morphology NORMAL APPEARANCE (NORMAL) 05/31/21 09:25 RBC Morph Micro Appear NORMAL APPEARANCE (NORMAL) 05/31/21 09:25 VBG pH 7.308 (7.31-7.41) L 05/30/21 01:54 VBG pCO2 66.0 mmHg (41-51) H 05/30/21 01:54 VBG pO2 26.3 mmHg (25-47) 05/30/21 01:54 VBG HCO3 32.3 mmol/L (23-28) H 05/30/21 01:54 VBG Total CO2 34.4 mmol/L (24-29) H 05/30/21 01:54 VBG O2 Saturation 48.0 % (60-80) L 05/30/21 01:54 VBG Base Excess 4.0 mmol/L (-2 - +2) H 05/30/21 01:54 Sodium 137 mmol/L (135-145) 06/01/21 10:05 Potassium 3.8 mmol/L (3.5-5.0) 06/01/21 10:05 Chloride 96 mmol/L (101-111) L 06/01/21 10:05 Carbon Dioxide 31 mmol/L (21-32) 06/01/21 10:05 Anion Gap 10.0 (6-13) 06/01/21 10:05 BUN 20 mg/dL (6-20) 06/01/21 10:05 Creatinine 0.9 mg/dL (0.6-1.2) 06/01/21 10:05 Estimated GFR (MDRD) 85 (>89) L 06/01/21 10:05 Glucose 296 mg/dL (70-100) H 06/01/21 10:05 POC Whole Bld Glucose 194 mg/dL (70 - 100) H 06/02/21 07:20 Lactic Acid 3.1 mmol/L (0.5-2.2) H* 05/30/21 10:37 Calcium 8.2 mg/dL (8.5-10.3) L 06/01/21 10:05 Phosphorus 2.5 mg/dL (2.5-4.6) 06/01/21 10:05 Magnesium 1.7 mg/dL (1.7-2.8) 06/01/21 10:05 Total Bilirubin 0.9 mg/dL (0.2-1.0) 06/01/21 10:05 Direct Bilirubin < 0.1 mg/dL (0.1-0.5) L 06/01/21 10:05 AST 62 IU/L (10-42) H 06/01/21 10:05 ALT 52 IU/L (10-60) 06/01/21 10:05 Alkaline Phosphatase 73 IU/L (42-121) 06/01/21 10:05 C-Reactive Protein 10.0 mg/dL (0-1.0) H 05/30/21 06:05 B-Natriuretic Peptide 27 pg/mL (5-100) 05/30/21 06:24 Total Protein 7.5 g/dL (6.7-8.2) 06/01/21 10:05 Albumin 2.4 g/dL (3.2-5.5) L 06/01/21 10:05 Globulin 5.1 g/dL (2.1-4.2) H 06/01/21 10:05 Albumin/Globulin Ratio 0.6 (1.0-2.2) L 05/30/21 01:27 Lipase 30 U/L (22-51) 05/30/21 01:27 Urine Color YELLOW 05/30/21 01:49 Urine Clarity CLEAR (CLEAR) 05/30/21 01:49 Urine pH 5.5 PH (5.0-7.5) 05/30/21 01:49 Ur Specific [place] <=1.005 (1.002-1.030) 05/30/21 01:49 Urine Protein NEGATIVE mg/dL (NEGATIVE) 05/30/21 01:49 Urine Glucose (UA) >=1000 mg/dL (NEGATIVE) H 05/30/21 01:49 Urine Ketones NEGATIVE mg/dL (NEGATIVE) 05/30/21 01:49 Urine Occult Blood NEGATIVE (NEGATIVE) 05/30/21 01:49 Urine Nitrite NEGATIVE (NEGATIVE) 05/30/21 01:49 Urine Bilirubin NEGATIVE (NEGATIVE) 05/30/21 01:49 Urine Urobilinogen 0.2 (NORMAL) E.U./dL (NORMAL) 05/30/21 01:49 Ur Leukocyte Esterase NEGATIVE (NEGATIVE) 05/30/21 01:49 Ur Microscopic Review NOT INDICATED 05/30/21 01:49 Urine Culture Comments NOT INDICATED 05/30/21 01:49 Nasal Adenovirus (PCR) NOT DETECTED 05/30/21 01:56 Nasal B. parapertussis DNA (PCR) NOT DETECTED 05/30/21 01:56 Nasal Coronavir 229E PCR NOT DETECTED 05/30/21 01:56 Nasal Coronavir HKU1 PCR NOT DETECTED 05/30/21 01:56 Nasal Coronavir NL63 PCR NOT DETECTED 05/30/21 01:56 Nasal Coronavir OC43 PCR NOT DETECTED 05/30/21 01:56 Nasal Enterovir/Rhinovir PCR NOT DETECTED 05/30/21 01:56 Nasal Influenza B PCR NOT DETECTED 05/30/21 01:56 Nasal Influenza A PCR NOT DETECTED 05/30/21 01:56 Nasal Parainfluen 1 PCR NOT DETECTED 05/30/21 01:56 Nasal Parainfluen 2 PCR NOT DETECTED 05/30/21 01:56 Nasal Parainfluen 3 PCR NOT DETECTED 05/30/21 01:56 Nasal Parainfluen 4 PCR NOT DETECTED 05/30/21 01:56 Nasal RSV (PCR) NOT DETECTED 05/30/21 01:56 Nasal B.pertussis DNA PCR NOT DETECTED 05/30/21 01:56 Nasal C.pneumoniae (PCR) NOT DETECTED 05/30/21 01:56 Pablo Human Metapneumo PCR NOT DETECTED 05/30/21 01:56 Nasal M.pneumoniae (PCR) NOT DETECTED 05/30/21 01:56 Nasal SARS-CoV-2 (PCR) NOT DETECTED 05/30/21 01:56 Serum Ketones NEGATIVE (NEGATIVE) 05/30/21 01:27 Sepsis Event Note (H) - Evaluation Current Stage of Sepsis: Severe sepsis Possible source of Sepsis: positive: Pulmonary, Unknown - Sepsis Criteria Sepsis Criteria: Recorded Temperature greater than 38.3C or Less than 36C, Recorded Heart Rate greater than 90 bpm, WBC count greater than 12,000 or less than 4000, METAL [employer]ER [employer]IVE COATING: altered consciousness (unrelated to primary neuro pathology), Metabolic: lactate > 2 mmol/L ABX Reporting Has patient been on IV antibiotics over the past 48 hours?: Yes
[2021-06-02 15:06] LABS: BASOPHILS # (AUTO) 0.1 10^3/uL (0.0-0.1); BASOPHILS % (AUTO) 0.5 %; EOSINOPHILS # (AUTO) 0.3 10^3/uL (0.0-0.7); EOSINOPHILS % (AUTO) 2.6 %; HCT - HEMATOCRIT 33.6 % (42.0-52.0); HGB - HEMOGLOBIN 10.7 g/dL (14.0-18.0); LYMPHOCYTES # (AUTO) 2.1 10^3/uL (1.5-3.5); LYMPHOCYTES % (AUTO) 21.3 %; MEAN CORPUSCULAR HEMOGLOBIN 29.9 pg (27.0-31.0); MEAN CORPUSCULAR HGB CONC 31.8 g/dL (32.0-36.0); MEAN CORPUSCULAR VOLUME 93.9 fL (80.0-94.0); MEAN PLATELET VOLUME 9.8 fL (7.4-11.4); MONOCYTES # (AUTO) 0.7 10^3/uL (0.0-1.0); MONOCYTES % (AUTO) 6.9 %; NEUTROPHILS # (AUTO) 6.7 10^3/uL (1.5-6.6); NEUTROPHILS % (AUTO) 68.2 %; PLT - PLATELET COUNT 277 10^3/uL (130-450); RED BLOOD COUNT 3.58 10^6/uL (4.70-6.10); RED CELL DISTRIBUTION WIDTH 14.2 % (12.0-15.0); WHITE BLOOD COUNT 9.8 x10^3/uL (4.8-10.8)
[2021-06-02 15:23] LABS: ALBUMIN 2.3 g/dL (3.2-5.5); BILIRUBIN,DIRECT 0.1 mg/dL (0.1-0.5); BILIRUBIN,TOTAL 0.3 mg/dL (0.2-1.0); CALCIUM 7.7 mg/dL (8.5-10.3); MAGNESIUM 1.8 mg/dL (1.7-2.8); PHOSPHORUS 2.4 mg/dL (2.5-4.6); POTASSIUM 3.7 mmol/L (3.5-5.0); TOTAL PROTEIN 6.9 g/dL (6.7-8.2)
[2021-06-02] MEDS: ATORVASTATIN 40 MG TABLET PO SCH (21:15)
[2021-06-03] MEDS: PIPERACILLIN/TAZOBACTAM 3.375 GM in SODIUM CHLORIDE 0.9% MINIBAG 100 ML IV SCH ×2 (01:34→10:35)
[2021-06-03] MEDS: oxyCODONE 5 MG TABLET PO SCH ×2 (05:47→11:36)
[2021-06-03] MEDS: GABAPENTIN 300 MG CAPSULE PO SCH (05:48)
[2021-06-03] MEDS: INSULIN ASPART 300 UNIT/3 ML PEN SUBQ SCH ×4 (08:30→11:39)
[2021-06-03] MEDS: TAMSULOSIN 0.4 MG CAPSULE PO SCH (08:34)
[2021-06-03] MEDS: MORPHINE SULFATE ER 30 MG TABLET PO SCH (08:34)
[2021-06-03] MEDS: LOSARTAN 50 MG TABLET PO SCH (08:34)
[2021-06-03] MEDS: METOPROLOL SUCCINATE 50 MG TABLET PO SCH (08:34)
[2021-06-03] MEDS: CLOPIDOGREL 75 MG TABLET PO SCH (08:34)
[2021-06-03] MEDS: amLODIPine 5 MG TABLET PO SCH (08:35)
[2021-06-03] MEDS: INSULIN GLARGINE 300 UNIT/3 ML PEN SUBQ SCH (08:35)
[2021-06-03] MEDS: LACTOBACILLUS RHAMNOSUS GG CAPSULE PO SCH (08:35)
[2021-06-03] MEDS: ASPIRIN EC 81 MG TABLET PO SCH (08:35)
[2021-06-03] MEDS: ISOSORBIDE MONONITRATE ER 30 MG TABLET PO SCH (08:35)
[2021-06-03] MEDS: SODIUM CHLORIDE FLUSH 0.9% 10 ML SYRINGE IVP SCH (08:36)
[2021-06-03] MEDS: ENOXAPARIN 40 MG/0.4 ML SYRINGE SUBQ SCH (08:36)
[2021-06-03] MEDS ORDERED: FUROSEMIDE 40 MG/4 ML VIAL IVP STA (09:30)
--- NOTE | 2021-06-03 09:42 | Ultrasound Report ---
PROCEDURE: Duplex Ext Veins Left INDICATIONS: left lower extremity pain and swelling TECHNIQUE: Real-time imaging, as well as color and pulse Doppler interrogation, were performed of the lower extr emity deep veins from the inguinal ligament to the popliteal fossa. COMPARISON: None. FINDINGS: The deep veins are normally compressible, and free of intraluminal thrombus. Color and pu lse Doppler demonstrate normal phasic intraluminal flow. There is normal augmentation response to di stal compression maneuver. The calf veins are not well visualized due to patient body habitus, and th e exam was technically challenging. IMPRESSION: No sonographic evidence of deep venous thrombosis in the left lower extremity. Reviewed by: Abel Daly MD on 06/03/2021 9:41 AM PST Approved by: Abel Daly MD on 06/03/2021 9:41 AM PST Station ID: [id number]
[2021-06-03 11:16] VITALS: BP 128/63
--- NOTE | 2021-06-03 12:15 | DISCHARGE SUMMARY ---
Discharge Summary Admit Date: 05/30/21 Discharge Date: 06/03/21 Discharging Provider: Vishal Wakefield Primary Care Provider: Rudolph Brown Code Status: Attempt Resuscitation Condition at Discharge: Stable Discharge Disposition: 01 Home, Self Care - DIAGNOSES Admission Diagnoses: Sepsis Community-acquired pneumonia Left leg cellulitis Acute kidney injury Chronic dental infection Coronary artery disease Hypertension Insulin-dependent diabetes mellitus BPH Discharge Diagnoses with Status of Each Condition: Sepsis: Acute. Improved/ Resolving. Patient discharged on 10 days dose of Augmentin. Community-acquired pneumonia: Acute. Improved/ Resolving. Patient discharged on 10 days dose of Augmentin. Left leg cellulitis: Acute. Improved/ Resolving. Patient discharged on 10 days dose of Augmentin. Acute kidney injury: Acute. Resolved. Creatinine is 1.0 at time of discharge with eGFR of 75 Chronic dental infection Coronary artery disease: Chronic. Stable. Continue home medication Hypertension: Chronic. Stable. Continue home medication Insulin-dependent diabetes mellitus: Chronic. Poorly controlled. Continue home medication BPH: Chronic. Stable. Continue home medication - HPI History of Present Illness: This is a 66-year-old male with a past medical history significant for insulin-dependent diabetes mellitus, IESHA on CPAP, hypertension, coronary artery disease who presents today after being found down by his . His works at [employer] and she was working this evening and when she came home at midnight, she found him passed out on the bathroom and EMS was called imm ediately. The patient was initially quite altered but his mentation has improved since his time in the emergency department. He tells me he had been feeling fine except for fatigue over the past 2 weeks. He has felt tired and has not been eating very much over this period of time. He is also been sleeping in his recliner due to leg swelling and pain when he lies flat. He denies any chest pain, dyspnea, cough, fevers, chills. He reports no abdominal pain, diarrhea, nausea, vomiting, dysuria, urgency. He reports feeling completely fine except for the fatigue. He has been battling a left molar tooth infection over the past couple weeks. He just completed a course of Augmentin 2 days ago and is scheduled for a root canal this week with Dr. Jef Youssef. Here in the emergency department, he was noted to be febrile and tachycardic. He was initially normotensive. Labs revealed a white count of 30,000 and a lactic acid of 5.0. His creatinine was also elevated at 1.4. CT of the head and oral maxillofacial were unremarkable. His urinalysis was unremarkable. Chest x-ray suggested bilateral pneumonia. Respiratory PCR panel was negative. Given the above findings, medicine was consulted for admission. I did discuss goals of care with the patient and he would like to be a full code. - HOSPITAL COURSE Hospital Course: Patient was admitted and started on vancomycin, Zosyn and azithromycin. Blood cultures subsequently grew group B strep. As a result vancomycin and azithromycin were discontinued. Patient was maintained on Zosyn throughout his hospital stay. On the day of discharge Augmentin 875/125 mg were prescribed for him to take 1 tablet p.o. twice daily x10 days. His white blood cell count improved from as high as 40.6 down to 9.8 by the day of discharge. His left lower extremity redness steadily improved. Due to significant swelling of the left leg a lower extremity Doppler was done which was negative for DVT. The patient's diabetes was managed with Lantus and regular insulin during his hospital stay. He remained mostly hyperglycemic with blood sugar between 200 and 300. His creatinine at time of presentation was 1.4. By the time of discharge creatinine was 1.0 with an estimated GFR of 75. He was discharged in stable condition. The rest of his hospital stay was unremarkable. - ALLERGIES Allergies/Adverse Reactions: Allergies Allergy/AdvReac Type Severity Reaction Status Date / Time No Known Drug Allergies Allergy Verified 05/30/21 01:20 - MEDICATIONS Home Medications: Ambulatory Orders Medication Instructions Recorded Confirmed Aspirin [Aspirin EC] 1 tab DAILY 05/30/21 05/30/21 Atorvastatin Calcium 40 mg PO DAILY 05/30/21 05/30/21 Cetirizine [ZyrTEC] 1 tab DAILY 05/30/21 05/30/21 Chlorthalidone 1 tab DAILY 05/30/21 05/30/21 Clopidogrel [Plavix] 75 mg PO DAILY 05/30/21 05/30/21 Docusate Sodium [Dulcolax Stool 100 mg PO BID 05/30/21 05/30/21 Softener] Dulaglutide [Trulicity] 3 mg SQ Q7D 05/30/21 05/30/21 Empagliflozin [Jardiance] 25 mg PO DAILY 05/30/21 05/30/21 Furosemide [Lasix] 40 mg PO DAILY 05/30/21 05/30/21 Gabapentin [Neurontin] 300 mg PO TID 05/30/21 05/30/21 Insulin Glargine [Lantus Solostar] 58 units 2100 05/30/21 05/30/21 Isosorbide Mononitrate ER [Imdur] 60 mg PO DAILY 05/30/21 05/30/21 Losartan [Cozaar] 100 mg PO DAILY 05/30/21 05/30/21 Metoprolol Succinate 100 mg PO DAILY 05/30/21 05/30/21 Morphine ER [Morphine Sulfate ER] 60 mg PO Q12H 05/30/21 05/30/21 Oxycodone HCl/Acetaminophen 1.5 tab PO Q6H 05/30/21 05/30/21 [Percocet 10-325 mg Tablet] Tamsulosin HCl [Flomax] 2 cap DAILY 05/30/21 05/30/21 amLODIPine [Norvasc] 10 mg PO DAILY 05/30/21 05/30/21 glipiZIDE [Glucotrol] 5 mg PO 0730 05/30/21 05/30/21 metFORMIN [Glucophage] 1,000 mg PO BIDWM 05/30/21 05/30/21 traZODone [Desyrel] 50 mg PO QPM PRN 05/30/21 05/31/21 Amox/Clav 875/125 [Augmentin 1 tablet PO Q12H 10 Days #20 tablet 06/03/21 875/125 Tab] - PHYSICAL EXAM AT DISCHARGE General Appearance: positive: Alert, Mild distress, Moderate distress Eyes Bilateral: positive: PERRL, EOMI ENT: positive: No signs of dehydration Neck: positive: No JVD, Trachea midline Respiratory: positive: Chest non-tender, No respiratory distress, Breath sounds nml. negative: Wheezes, Rales, Rhonchi Cardiovascular: positive: Regular rate & rhythm Abdomen: positive: Non-tender, Nml bowel sounds, Other (obese abdomen) Back: positive: Nml inspection Skin: positive: No rash, Warm, Dry, Other (Mild redness on left lower extremity (improved)) Extremities: positive: Pedal edema (non pitting), Other (mild redness in left lower extremity( improved)) Neurologic/Psychiatric: positive: Oriented x3, Mood/affect nml - LABS Result Diagrams: 06/02/21 14:50 06/02/21 14:50 - SEPSIS Current Stage of Sepsis: Severe sepsis Possible source of Sepsis: Pulmonary, Skin/soft tissue Sepsis Criteria: Recorded Temperature greater than 38.3C or Less than 36C, Recorded Heart Rate greater than 90 bpm, WBC count greater than 12,000 or less than 4000, VOCATIONAL NURSE: altered consciousness (unrelated to primary neuro pathology), Metabolic: lactate > 2 mmol/L - TIME SPENT Time Spent in Discharge (Minutes): 20
--- NOTE | 2021-06-03 12:19 | Discharge Plan ---
Discharge Plan Problem Reviewed?: Yes Disposition: Home, Self Care Condition: Stable Prescriptions: Amox/Clav 875/125 [Augmentin 875/125 Tab] 1 tablet PO Q12H 10 Days #20 tablet Diet: Diabetic Activity Restrictions: Activity as Tolerated Weight Bearing: Full Weight Health Concerns: You presented to the emergency department on 05/30/2021 with fever and a fast heart rate. Further work-up showed that your white blood cell count was high at 30. You were diagnosed with sepsis thought to be due to left lower extremity cellulitis and possible pneumonia. You were started on antibiotics which included vancomycin, Zosyn and azithromycin. Blood cultures grew Streptococcus group B. Point the vancomycin and azithromycin was discontinued. Zosyn was maintained throughout your hospital stay. Count improved steadily from as high as 40.6 down to 9.8 on the day before discharge. The redness in your left lower extremity steadily improved as well. You were discharged with a prescription of Augmentin 875/125 to take 1 tablet p.o. twice daily x10 days. You had significant left leg swelling. You had an ultrasound of your left leg done which was negative for blood clot. It is likely the swelling is due to the infection and will go down over time. You were given a dose of Lasix to help decrease the swelling. -year-old blood sugar was managed with Lantus and regular insulin during your hospital stay. At the time of discharge your home medications were resumed at home doses without any change. You were discharged in stable condition. You may follow-up with your primary care physician within 7 to 10 days or as needed. The above plan was discussed with you you expressed understanding and agreeable with the plan. No Smoking: If you smoke, Please STOP! Call for help. Follow-up with: Rudolph Brown MD [Primary Care Provider] -
== END 2021-06-03 13:43 | disposition home or self-care (01) | DRG 871 ==
LOC: ED 01:13 → MS2 05:14
PROVIDERS: ADMIT Internal Medicine; ATTEND Internal Medicine
DX: A41.9 Sepsis, unspecified organism (principal); A40.1 Sepsis due to streptococcus, group B; Z20.822 Contact with and (suspected) exposure to COVID-19; E78.5 Hyperlipidemia, unspecified; R35.0 Frequency of micturition; R32 Unspecified urinary incontinence; R09.02 Hypoxemia; J18.9 Pneumonia, unspecified organism; L03.116 Cellulitis of left lower limb; N17.9 Acute kidney failure, unspecified; Z68.43 Body mass index [BMI] 50.0-59.9, adult; R65.20 Severe sepsis without septic shock; I25.10 Atherosclerotic heart disease of native coronary artery without angina pectoris; K04.7 Periapical abscess without sinus; I10 Essential (primary) hypertension; G47.33 Obstructive sleep apnea (adult) (pediatric); E11.65 Type 2 diabetes mellitus with hyperglycemia; Z79.899 Other long term (current) drug therapy; Z79.4 Long term (current) use of insulin; Z79.84 Long term (current) use of oral hypoglycemic drugs; Z79.01 Long term (current) use of anticoagulants; N40.0 Benign prostatic hyperplasia without lower urinary tract symptoms; Z98.61 Coronary angioplasty status; E66.9 Obesity, unspecified
CPT/HCPCS: 36415; 51702; 70450; 70487; 71045; 80048; 80053; 80076; 81003; 82009; 82803; 83605; 83690; 83735; 83880; 84100; 85025; 86140; 87040; 87150; 87181; 87631; 93005; 93306; 93971; 96361; 96365; 96375; 99283; 99285; A9270; J1650; J1815; J3370; J7120; Q9967; 0202U; 81001; 87086

== ENCOUNTER 2022-07-27 13:50 | Outpatient (CLI) | payer MEDICARE, MEDICAID | END 2022-07-27 13:51 | disposition E | LOC: EMS 13:50 | DX: I46.9 Cardiac arrest, cause unspecified (principal) | CPT/HCPCS: A0425; A0428 ==